=== PATIENT | male | born 1975 | race Caucasian/White ===

== ENCOUNTER 2022-08-04 09:48 | Outpatient (CLI) | payer OTHER, SELFPAY ==
[2022-08-04 16:49] LABS: Chloride* 99 mmol/L (96-114); Potassium* 5.1 mmol/L (3.6-5.1); Sodium* 139 mmol/L (135-149)
[2022-08-04 16:52] LABS: Blood Urea Nitrogen* 20 mg/dL (5-24); Carbon Dioxide* 31 mmol/L (20-32); Cholesterol* 237 mg/dL (90-199); Creatinine* 1.6 mg/dL (0.5-1.5); Estimated Glomerular Filt Rate 53 ml/min
[2022-08-04 16:53] LABS: Calcium* 9.9 mg/dL (8.4-10.6); Glucose* 92 mg/dL (60-115); HDL Cholesterol* 48 mg/dL (>=40); Triglycerides* 181 mg/dL (40-149)
[2022-08-04 16:57] LABS: LDL Cholesterol Calculated 153 mg/dL (<100)
== END 2022-08-04 09:49 | disposition home or self-care (01) ==
PROVIDERS: PCP Family Medicine; Visit Provider Family Medicine
DX: Z00.00 Encounter for general adult medical examination without abnormal findings (principal); E78.00 Pure hypercholesterolemia, unspecified; D64.9 Anemia, unspecified; F41.8 Other specified anxiety disorders; R79.89 Other specified abnormal findings of blood chemistry
CPT/HCPCS: 80048; 80061

== ENCOUNTER 2022-10-27 08:01 | Outpatient (CLI) | payer OTHER, SELFPAY | END 2022-10-27 08:02 | disposition home or self-care (01) | LOC: NFLDREF 11-03 12:37 | PROVIDERS: PCP Family Medicine; Referring Provider Family Medicine; Visit Provider Family Medicine | DX: E78.00 Pure hypercholesterolemia, unspecified (principal); R79.89 Other specified abnormal findings of blood chemistry | CPT/HCPCS: 80048; 80061 ==

== ENCOUNTER 2023-03-24 08:00 | Outpatient (CLI) | payer OTHER, SELFPAY | END 2023-03-24 08:01 | disposition home or self-care (01) | LOC: NFLDREF 03-25 08:16 | PROVIDERS: PCP Family Medicine; Referring Provider Family Medicine; Visit Provider Family Medicine | DX: E78.00 Pure hypercholesterolemia, unspecified (principal); R79.89 Other specified abnormal findings of blood chemistry | CPT/HCPCS: 80053; 80061 ==

== ENCOUNTER 2023-10-17 07:57 | Outpatient (CLI) | payer OTHER, SELFPAY | END 2023-10-17 07:58 | disposition home or self-care (01) | LOC: NFLDREF 10-18 06:00 | PROVIDERS: PCP Family Medicine; Referring Provider Family Medicine; Visit Provider Family Medicine | DX: E78.00 Pure hypercholesterolemia, unspecified (principal); Z13.1 Encounter for screening for diabetes mellitus | CPT/HCPCS: 80053; 80061 ==

== ENCOUNTER 2023-10-29 08:39 | Emergency (ER) | payer OTHER, SELFPAY ==
[2023-10-29] VITALS (27 sets, daily range): BP systolic 112–135; BP diastolic 79–94; PULSE 65–96; RESP 16; TEMP 36.2; O2SAT 92–99; BMI 23.0
--- NOTE | 2023-10-29 08:56 | CT_ITS ---
Final Report Patient: SHAVON HERNANDEZ Facility:?[facility] Patient ID:?[id number] Site Patient ID:?[id number]. Site :?[id number] Study:?CT Abdomen/Pelvis WITHOUT-10/29/2023 9:30:26 AM Ordering Physician:MARA Final Report: Indication: Left flank pain, rule out stone Technique: Volumetric multidetector CT images of the abdomen and pelvis were without the administration of intravenous contrast. Comparison: None available. Findings: The lung bases are clear. The liver is normal in attenuation without intrahepatic biliary ductal dilatation. The gallbladder is unremarkable without evidence of radiopaque calculus. There is no significant common biliary ductal dilatation or abrupt cut off. The spleen is normal in attenuation and size. The stomach and duodenum are grossly unremarkable. The pancreas is normal in attenuation without significant atrophy. The adrenal glands are unremarkable. There is demonstration of severe left-sided pelvocaliectasis with somewhat abrupt transition of caliber at the ureteropelvic junction without evidence of obstructive calculus. Finding may represent development of a ureteropelvic junction obstruction. Cystic changes of the right kidney are appreciated. Moderate to severe stool seen throughout the colon without evidence of significant pericolonic inflammation. The appendix is unremarkable. There is no significant mesenteric, retroperitoneal, or pelvic sidewall lymph nodes. The aorta is nonaneurysmal. There is no significant atherosclerotic disease appreciated. The solid pelvic viscera are grossly unremarkable. There is no free fluid or free air. The anterior abdominal wall is intact without significant hernias. The lumbar vertebral body heights are grossly maintained in satisfactory alignment without evidence of displaced fracture, lytic or blastic lesion. Impression: Severe left-sided pelvocaliectasis with somewhat abrupt transition of caliber at the level of the ureteropelvic junction without obstructive calculus. Findings could represent developing ureteropelvic junction obstruction and/or stricture. An underlying obstructive mass is not entirely excluded. Consider further evaluation with CT urogram for improved characterization. Moderate to severe stool seen throughout the colon. Otherwise, no acute intra-abdominal abnormalities. Please note that all CT scans at this facility use dose modulation, iterative reconstruction, and/or weight-based dosing when appropriate to reduce radiation dose to as low as reasonably achievable. Dictated by Zuhair Campos MD @ 10/29/2023 9:42:15 AM (Electronic Signature)
--- NOTE | 2023-10-29 08:58 | ED.GENADULT ---
HPI - General Adult General Chief complaint: Flank Pain Stated complaint: abdominal pain radiates to back Time Seen by Provider: 10/29/23 08:42 History of Present Illness HPI narrative: [age] year white male who has a history of elevated creatinine at 1.6, it is elevated over last couple years. He is scheduled to see Nephrology. The patient reports with onset at 3 in the morning of left flank pain radiating a little bit around to his groin starting in his back. Seems like it is more tender to touch in the anterior abdomen but he can not really reproduce that pain. He has had no history of diverticulitis, no history of kidney stones. No history of hematuria. Did he did think he had blood in his urine remotely. No rigors or chills. Patient presents to ED with his family. Related Data Home Medications Medication Instructions Recorded Confirmed famotidine 20 mg tablet 20 mg PO QDAY 10/27/23 10/27/23 Previous Rx's Medication Instructions Recorded rosuvastatin 10 mg tablet 10 mg PO DAILY #90 tabs 03/27/23 escitalopram oxalate 10 mg tablet 10 mg PO DAILY #90 tabs 08/18/23 Allergies Allergy/AdvReac Type Severity Reaction Status Date / Time No Known Allergies Allergy Unknown Verified 10/27/23 10:16 Review of Systems Status of ROS: Reports: 6 or more systems reviewed and unremarkable except as noted in History and below [facility] Medical History Chronic kidney disease ?N18.9 - Chronic kidney disease, unspecified (ICD-10) Hypercholesterolemia ?E78.00 - Pure hypercholesterolemia, unspecified (ICD-10) Surgical History History of vasectomy ?Z98.52 - Vasectomy status (ICD-10) Family History Other Colonic polyp Social History Smoking Status: Never smoker Do you use any of these nicotine containing products: None Second hand tobacco smoke exposure: No How often do you have a drink containing alcohol: 2-4 times a month How many standard drinks containing alcohol do you have on a typical day: 5 or 6 How often do you have six or more drinks on one occasion: Monthly AUDIT-C Alcohol total score: 6 Non-prescribed substance use: denies use Little interest or pleasure in doing things: not at all Feeling down, depressed, or hopeless: several days service: No Exam Narrative: Exam Narrative: Objective afebrile, in mild distress to moderate distress and discomfort HEENT unremarkable neck is supple line pulse regular Abdomen bowel sounds normoactive, mild tenderness to left lower abdomen but no rebound or peritonitis no palpable masses. Negative CVA tenderness Extremities normal neurologic nonfocal, good skin peripheral perfusion. Const: Vital Signs, click to edit/add: Vital Signs - 24 hr 10/29/23 08:43 10/29/23 09:21 10/29/23 09:29 Temperature 97.1 F L Pulse Rate Pulse Rate [Pulse Oximeter] 69 78 Respiratory Rate 16 16 Blood Pressure Blood Pressure [Ri ght Upper Arm] 135/93 H 129/94 H Pulse Oximetry 99 97 97 Oxygen Delivery Me thod Room Air Room Air Oxygen Flow Rate 10/29/23 09:35 10/29/23 09:40 10/29/23 10:00 Temperature Pulse Rate 65 69 78 Pulse Rate [Pulse Oximeter] Respiratory Rate Blood Pressure Blood Pressure [Ri ght Upper Arm] Pulse Oximetry 93 93 94 Oxygen Delivery Me thod Oxygen Flow Rate 10/29/23 10:20 10/29/23 10:24 10/29/23 10:29 Temperature Pulse Rate 74 75 86 Pulse Rate [Pulse Oximeter] Respiratory Rate Blood Pressure 125/92 H 121/89 Blood Pressure [Ri ght Upper Arm] Pulse Oximetry 98 99 95 Oxygen Delivery Me thod Oxygen Flow Rate 10/29/23 10:30 10/29/23 10:40 10/29/23 10:48 Temperature Pulse Rate 86 86 82 Pulse Rate [Pulse Oximeter] Respiratory Rate Blood Pressure 118/84 Blood Pressure [Ri ght Upper Arm] Pulse Oximetry 94 94 92 Oxygen Delivery Me thod Oxygen Flow Rate 10/29/23 10:49 10/29/23 11:00 10/29/23 11:23 Temperature Pulse Rate 82 82 82 Pulse Rate [Pulse Oximeter] Respiratory Rate Blood Pressure Blood Pressure [Ri ght Upper Arm] Pulse Oximetry 96 98 97 Oxygen Delivery Me thod Nasal Cannula Nasal Cannula Oxygen Flow Rate 1 1 10/29/23 11:31 10/29/23 11:40 10/29/23 12:00 Temperature Pulse Rate 83 87 83 Pulse Rate [Pulse Oximeter] Respiratory Rate Blood Pressure 116/84 Blood Pressure [Ri ght Upper Arm] Pulse Oximetry 93 92 94 Oxygen Delivery Me thod Oxygen Flow Rate 10/29/23 12:01 10/29/23 12:20 10/29/23 12:31 Temperature Pulse Rate 93 89 89 Pulse Rate [Pulse Oximeter] Respiratory Rate Blood Pressure 117/85 116/84 Blood Pressure [Ri ght Upper Arm] Pulse Oximetry 95 93 93 Oxygen Delivery Me thod Oxygen Flow Rate 10/29/23 12:40 Temperature Pulse Rate 83 Pulse Rate [Pulse Oximeter] Respiratory Rate Blood Pressure Blood Pressure [Ri ght Upper Arm] Pulse Oximetry 93 Oxygen Delivery Me thod Oxygen Flow Rate Course Vital Signs Vital signs: Initial Vital Signs Temperature 97.1 F L 10/29/23 08:43 Temperature Source Temporal Artery Scan 10/29/23 08:43 Pulse Rate 69 10/29/23 08:43 Pulse Rhythm Regular 10/29/23 08:43 Respiratory Rate 16 10/29/23 08:43 Blood Pressure 135/93 H 10/29/23 08:43 Blood Pressure Mean 107 H 10/29/23 08:43 Blood Pressure Position Supine 10/29/23 08:43 Pulse Oximetry 99 10/29/23 08:43 Oxygen Delivery Method Room Air 10/29/23 08:43 Vital Signs Temperature 97.1 F L 10/29/23 08:43 Pulse Rate 69 10/29/23 08:43 Respiratory Rate 16 10/29/23 08:43 Blood Pressure 135/93 H 10/29/23 08:43 Pulse Oximetry 99 10/29/23 08:43 Oxygen Delivery Method Room Air 10/29/23 08:43 Temperature 97.1 F L 10/29/23 08:43 Pulse Rate 83 10/29/23 12:40 Respiratory Rate 16 10/29/23 09:21 Blood Pressure 116/84 10/29/23 12:31 Pulse Oximetry 93 10/29/23 12:40 Oxygen Delivery Method Nasal Cannula 10/29/23 11:00 Oxygen Flow Rate 1 10/29/23 11:00 Medications Administered Medications: Discontinued Medications Generic Name Dose Route Start Last Admin Trade Name Freq PRN Reason Stop Dose Admin Hydromorphone HCl 1 mg 10/29/23 10:22 10/29/23 10:24 Hydromorphone 0.5 Mg/0.5 Ml Inj IVP 10/29/23 10:23 1 mg ONCE ONE Administration Sodium Chloride 1,000 mls @ 6,000 mls/hr 10/29/23 09:00 10/29/23 12:01 0.9 % Sodium Chloride 1000 Ml IV 10/29/23 09:09 Infused .Q10M ZACK Infusion Morphine Sulfate 4 mg 10/29/23 08:56 10/29/23 09:13 Morphine 4 Mg/Ml Inj IVP 10/29/23 08:57 4 mg ONCE ONE Administration Ondansetron HCl 4 mg 10/29/23 08:56 10/29/23 09:13 Ondansetron 2 Mg/Ml Inj IVP 10/29/23 08:57 4 mg ONCE ONE Administration Medical Decision Making MDM Narrative Medical decision making narrative: [age] year white male with abdominal pain left flank pain probable kidney stone, patient also has some mildly elevated creatinine. Will do an unenhanced CT, IV fluid, pain medication in the form of morphine, also he has felt nauseated will give some Zofran. Will check electrolytes labs urinalysis. Disposition pending CT scan in his clinical status. Addendum 10:21 a.m. the patient has for left UPJ obstruction, no stone is seen but this is likely explanation for his chronically elevated creatinine or progressively elevated creatinine. He is in a good amount of discomfort still given Dilaudid IV and he needs a urologic consultation and treatment. Will call for Urology consult and transfer. Transfer sheets completed patient is in stable condition for transfer. Addendum 11:13 a.m. the patient has been accepted by a Urology Dr. Ascencio at [facility]. Will discuss with the hospitalist as well. There is a delay but likely would get a stent tomorrow. Lab Data Labs: Lab Results 10/29/23 10/29/23 Range/Units 09:12 11:20 WBC 8.96 (4.50-11.00) K/uL RBC 4.97 (4.30-5.90) m/uL Hgb 14.7 (13.5-17.5) gm/dL Hct 42.1 (37.0-53.0) % MCV 85 (80-100) fL MCH 30 (26-34) pg MCHC 35 (32-36) gm/dL RDW Coeff of Cristian 11.8 (11.5-15.5) % Plt Count 187 (140-440) K/uL Neut % (Auto) 89.3 H (42.0-72.0) % Lymph % (Auto) 6.4 L (20-44) % [place] % (Auto) 4.0 (0.0-11.0) % Eos % (Auto) 0.1 (0.0-7.0) % Baso % (Auto) 0.1 (0.0-3.0) % Neut # (Auto) 8.00 H (1.7-7.0) K/uL Lymph # (Auto) 0.60 L (0.90-2.90) K/uL [place] # (Auto) 0.40 (0.00-0.90) K/UL Eos # (Auto) 0.01 (0.00-0.50) K/uL Baso # (Auto) 0.01 (0.00-0.30) K/uL Abs Immat Gran (auto) 0.01 (0.00-0.30) K/uL Imm/Tot Granulo (auto) 0.1 % Sodium 138 (135-149) mmol/L Potassium 4.1 (3.6-5.1) mmol/L Chloride 104 (96-114) mmol/L Carbon Dioxide 24 (20-32) mmol/L Anion Gap 10 (7-15) mEq/L BUN 24 (5-24) mg/dL Creatinine 1.3 (0.5-1.5) mg/dL Estimated Creat Clear 73.56 Estimated GFR 68 ml/min Glucose 110 (60-115) mg/dL Calcium 9.6 (8.4-10.6) mg/dL Total Bilirubin 0.9 (0.1-1.5) mg/dL Direct Bilirubin 0.2 (0.0-0.5) mg/dL AST 38 H (12-35) U/L ALT 42 (4-50) U/L Alkaline Phosphatase 64 (40-150) U/L C-Reactive Protein < 0.5 L (0.5-1.0) mg/dL Total Protein 7.8 (6.0-8.3) g/dL Albumin 4.8 (3.3-5.0) g/dL Amylase 105 H (18-89) U/L Urine Color Yellow (Yellow) Urine Appearance Clear (Clear) Urine pH 7.5 (5.0-8.5) Ur Specific [place] 1.020 (1.000-1.030) Urine Protein Negative (Negative) Urine Glucose (UA) Negative (Negative) Urine Ketones 2+ A (Negative) Urine Blood Negative (Negative) Urine Nitrite Negative (Negative) Urine Bilirubin Negative (Negative) Urine Urobilinogen 0.2 (0.2-1.0) Ur Leukocyte Esterase Negative (Negative) Urine RBC 0-2 (0-2) Urine WBC 0-2 (0-5) Ur Squamous Epith Cells None (None-Few) Urine Bacteria None (None) Discharge Plan Discharge Clinical Impression: Acute left flank pain, Obstruction of left ureteropelvic junction (UPJ) Patient Disposition: Xfer Jacqueline Shahid Prescriptions: No Action famotidine 20 mg tablet 20 mg PO QDAY rosuvastatin 10 mg tablet 10 mg PO DAILY Qty: 90 3RF escitalopram oxalate 10 mg tablet 10 mg PO DAILY Qty: 90 0RF Stand Alone Forms: MyHealth Info Instructions
[2023-10-29] MEDS: ONDANSETRON 2 MG/ML inj 4 MG IVP (09:13)
[2023-10-29] MEDS: MORPHINE 4 MG/ML INJ IVP (09:13)
[2023-10-29 09:20] LABS: Basophils Absolute Auto 0.01 K/uL (0.00-0.30); Basophils Percent Auto 0.1 % (0.0-3.0); Eosinophils Absolute Auto 0.01 K/uL (0.00-0.50); Eosinophils Percent Auto 0.1 % (0.0-7.0); Hematocrit 42.1 % (37.0-53.0); Hemoglobin* 14.7 gm/dL (13.5-17.5); Immature Granulocytes Abs Auto 0.01 K/uL (0.00-0.30); Immature Granulocytes Pct Auto 0.1 %; Lymphocytes Percent Auto 6.4 % (20-44); Mean Corpuscular HGB Conc 35 gm/dL (32-36); Mean Corpuscular Hemoglobin 30 pg (26-34); Mean Corpuscular Volume 85 fL (80-100); Neutrophils Percent Auto 89.3 % (42.0-72.0); Platelet Count* 187 K/uL (140-440); RDW Coefficient of Variation % 11.8 % (11.5-15.5); Red Blood Count 4.97 m/uL (4.30-5.90); White Blood Count* 8.96 K/uL (4.50-11.00)
[2023-10-29] MEDS: 0.9 % SODIUM CHLORIDE 1000 ml 1,000 ML 6000 ML IV (09:20)
[2023-10-29 09:24] LABS: Slide Review Reflex No
[2023-10-29 09:40] LABS: Albumin* 4.8 g/dL (3.3-5.0)
[2023-10-29 09:41] LABS: Chloride* 104 mmol/L (96-114); Potassium* 4.1 mmol/L (3.6-5.1); Sodium* 138 mmol/L (135-149)
[2023-10-29 09:43] LABS: Alkaline Phosphatase* 64 U/L (40-150); Aspartate Amino Transferase* 38 U/L (12-35); Bilirubin Direct* 0.2 mg/dL (0.0-0.5); Bilirubin Total* 0.9 mg/dL (0.1-1.5); Total Protein* 7.8 g/dL (6.0-8.3)
[2023-10-29 09:44] LABS: Alanine Aminotransferase* 42 U/L (4-50); Amylase* 105 U/L (18-89); Anion Gap 10 mEq/L (7-15); Carbon Dioxide* 24 mmol/L (20-32); Creatinine* 1.3 mg/dL (0.5-1.5); Est. Creatinine Clearance* 73.56; Estimated Glomerular Filt Rate 68 ml/min
[2023-10-29 09:45] LABS: Blood Urea Nitrogen* 24 mg/dL (5-24); Calcium* 9.6 mg/dL (8.4-10.6); Glucose* 110 mg/dL (60-115)
[2023-10-29 09:53] LABS: C Reactive Protein* < 0.5 mg/dL (0.5-1.0)
[2023-10-29] MEDS: HYDROmorphone 0.5 mg/0.5 ml inj 1 MG IVP ×2 (10:24→13:20)
[2023-10-29 12:08] LABS: Appearance Urine Clear (Clear); Bilirubin Urine Negative (Negative); Blood Urine Negative (Negative); Color Urine Yellow (Yellow); Glucose Urine Negative (Negative); Ketones Urine 2+ (Negative); Leukocyte Esterase Urine Negative (Negative); Nitrite Urine Negative (Negative); Protein Urine Negative (Negative); Urobilinogen Urine 0.2 (0.2-1.0); pH Urine 7.5 (5.0-8.5)
[2023-10-29 12:21] LABS: RBC Urine 0-2 (0-2); WBC Urine 0-2 (0-5)
== END 2023-10-29 14:05 | disposition home or self-care (01) ==
PROVIDERS: Emergency Provider Family Medicine; PCP Family Medicine
DX: N13.0 Hydronephrosis with ureteropelvic junction obstruction (principal)
CPT/HCPCS: 36415; 74176; 80048; 80076; 81001; 82150; 85025; 86140; 87086; 94761; 96374; 96375; 96376; 99284; 99285; J1170; J2270; J2405; J7030

== ENCOUNTER 2023-10-29 13:52 | Outpatient (CLI) | payer OTHER, SELFPAY | END 2023-10-29 13:53 | disposition home or self-care (01) | LOC: AMB 11-07 06:53 | PROVIDERS: PCP Family Medicine; Visit Provider Family Medicine | DX: N13.5 Crossing vessel and stricture of ureter without hydronephrosis (principal) | CPT/HCPCS: A0425; A0427 ==

== ENCOUNTER 2023-12-08 15:13 | Outpatient (CLI) | payer OTHER, SELFPAY | END 2023-12-08 15:14 | disposition home or self-care (01) | PROVIDERS: PCP Family Medicine; Visit Provider Family Medicine | DX: R79.89 Other specified abnormal findings of blood chemistry (principal); N18.9 Chronic kidney disease, unspecified; Z12.5 Encounter for screening for malignant neoplasm of prostate | CPT/HCPCS: 80048; 87086; G0103 ==

== ENCOUNTER 2024-02-20 10:52 | Outpatient (CLI) | payer OTHER, SELFPAY ==
--- OUTSIDE RECORDS SUMMARY | 2024-02-20 10:55 | XMS_ITS | Clinical Summary ---
Author Organization [employer] [facility] Address [place], [place] [address] Care Team Providers Care Agricultural Agent Name Role Phone Clinic, No Pcp Or Primary Care Provider Unavaila ble Allergies No known active allergies Medications Medication Sig Dispensed Refills Start Date End Date Status rosuvastatin (Crestor) 10 mg tablet Take 10 mg by mouth at bedtime. Active escitalopram oxalate (Lexapro) 10 mg tablet Take 10 mg by mouth once daily. Active famotidine (Pepcid) 20 mg tablet Take 20 mg by mouth at bedtime. Active oxyCODONE (ROXICODONE) 5 mg immediate release tabletIndications:UPJ (ureteropelvic junction) obstruction Take 1-2 Tablets (5-10 mg) by mouth every 4 hours if needed for Pain (For severe pain.). 12 Tablet 12/13/2023 Active docusate (COLACE) 100 mg capsuleIndications:UP J (ureteropelvic junction) obstruction Take 1 Capsule (100 mg) by mouth 2 times daily if needed for Constipation. 30 Capsule 12/13/2023 Active methocarbamoL (ROBAXIN) 500 mg tabletIndications:H/O left radical nephrectomy Take 1 Tablet (500 mg) by mouth every 6 hours if needed for Muscle Spasm by mouth 1st choice. 16 Tablet 12/14/2023 Active Active Problems Problem Noted Date Diagnosed Date Postoperative ileus 12/16/2023 CKD (chronic kidney disease) stage 2, GFR 60-89 ml/min 12/16/2023 Hyperglycemia 12/16/2023 H/O left nephrectomy 12/16/2023 Atrophic kidney 12/14/2023 UPJ obstruction, acquired 10/30/2023 UPJ (ureteropelvic junction) obstruction 024 Ureteropelvic junction (UPJ) obstruction 024 GERD without esophagitis 10/29/2023 Other hyperlipidemia 10/29/2023 Persistent depressive disorder 10/29/2023 Encounters Date Type Department Care Team Description 12/15/2023 10:42 PM CDT - 12/18/2023 12:00 PM CDT Hospital Encounter [place] [id number] [facility] [place] [address] Juan Paiz MD Fafara, Jafary, MD Vanderloo, Matthew Robert, MD Postoperative ileus (HC) (Primary Dx) Discharge Disposition: Home Self Care 12/15/2023 Travel 12/12/2023 11:21 AM CDT Anesthesia Event [facility] [address] [place] [address] Mekhi Benson MD Howard, Darwin Thomas, CRNA 12/12/2023 10:56 AM CDT - 12/12/2023 1:15 PM CDT Surgery [facility] [address] [place] [address] Ronny Sanchez MD HAND ASSISTED LAPAROSCOPIC LEFT NEPHRECTOMY 12/12/2023 9:25 AM CDT - 12/14/2023 1:55 PM CDT Hospital Encounter [facility] [address] [place] [address] Ronny Sanchez MD UPJ (ureteropelvic junction) obstruction (Primary Dx); H/O left radical nephrectomy Discharge Disposition: Home Self Care 12/11/2023 Travel 11/22/2023 5:44 PM CDT - 11/22/2023 11:59 PM CDT Hospital Encounter [facility] [address] [place] [address] Ronny Sanchez MD Hydronephrosis 11/22/2023 Travel from Last 3 Months Immunizations Name Administration Dates Next Due Hepatitis A (Adult) 11/13/2002 Influenza A (H1N1), Inactivated 08/13/2009 Influenza Virus, Unspecified 05/29/2009 Influenza, IIV4 08/12/2023,07/08/2021,05/12/2020 Influenza,CCIIV4 PRESERV FREE 07/05/2022 Influenza,LAIV3 Live Intranasal (Flumist) 2007 Tdap 06/17/2014 Social History Tobacco Use Types Packs/Day Years Used Date Smoking Tobacco: Never Smokeless Tobacco: Never Tobacco Cessation:Counseling Given: Not Answered Alcohol Use Standard Drinks/Week Comments Yes 0 (1 standard drink = 0.6 oz pur e alcohol) Social Connections Answer Date Recorded Frequency of Communication with Friends and Fami ly 0 10/29/2023 Financial Resource Strain Answer Date R ecorded Difficulty of Paying Living Expenses 3 10/29/2023 Difficulty of Paying Living Expenses Not on file 10/29/2023 Food Insecurity Answer Date Recorded Worried About Running Out of Food in the Last Ye ar 1 10/29/2023 Transportation Needs Answer Date Record ed Lack of Transportation (Medical) 1 10/29/2023 Housing Stability Answer Date Recorded Unable to Pay for Housing in the Last Year 1 12/12/2023 Sex and Gender Information Value Date Recorded Sex Assigned at Not on file Gender Identity Not on file Sexual Orientation Not on file Obstetrics History Last Filed Vital Signs Vital Sign Reading Time Taken Comments Blood Pressure 116/70 12/18/2023 8:14 AM CDT Pulse 78 12/18/2023 8:14 AM CDT Temperature 36.6 ??C (97.9 ??F) 12/18/2023 8:14 AM CD T Respiratory Rate 16 12/18/2023 8:14 AM CDT Oxygen Saturation 99% 12/18/2023 8:14 AM CDT Inhaled Oxygen Concentration - - Weight 72.6 kg (160 lb) 12/15/2023 10:41 PM CDT Height 180.3 cm (5' 11) 12/15/2023 10:41 PM CDT Body Mass Index 22.32 12/15/2023 10:41 PM CDT Plan of Treatment Health Maintenance Due Date Last Done Comments Depression screening for age 12+ 1987 HIV for age 15-65 1990 BMI (ht and wt on same day) for age 18+ 1993 Hepatitis C screening for age 18-79 1993 Colonoscopy through age 75 02/23/2020 Lipids for age 45-75 02/23/2020 Influenza for age 9-49 04/28/2024 12/16/202 3, 07/05/2022, 07/08/2021, Additional history exists Tetanus booster 06/17/2024 06/17/2014 Tdap Completed 06/17/2014 COVID-19 vaccine series Completed 08/23/20 23, 08/13/2022, 08/22/2021, Additional history exists Pneumococcal series for age 6-64 Aged Out No longer eligible based on patient's age to complete this topic Medical Devices Implanted Type Area Inspector Of Dredging Device Identifier Shelf Expiration Date Model / Serial / Lot Stent Uret [id number] Contour - [id number] Implanted:Qty: 1 on 10/30/2023 by Zurdo Ascencio MD at [facility] Left: Ureter [facility] 12/01/2023 [id number] Description:See implant shee t Procedures Procedure Name Priority Date/Time Associated Diagnosis Comments C-REACTIVE PROTEIN Early AM 12/17/2023 7: 27 AM CDT HEMOGLOBIN Early AM 12/17/2023 7:27 AM CDT CREATININE Early AM 12/17/2023 7:27 AM CDT XR ABDOMEN 1 VIEW PORTABLE STAT 12/16/2023 12:11 PM CDT WHITE BLOOD COUNT Early AM 12/16/2023 6:1 3 AM CDT GLUCOSE, RANDOM Early AM 12/16/2023 6:13 AM CDT CREATININE Early AM 12/16/2023 6:13 AM CDT MAGNESIUM Early AM 12/16/2023 6:13 AM CDT POTASSIUM Early AM 12/16/2023 6:13 AM CDT SODIUM Early AM 12/16/2023 6:13 AM CDT HEMOGLOBIN Early AM 12/16/2023 6:[address] ABDOMEN PELVIS W STAT 12/16/2023 1 2:06 AM CDT UA W/ SEDIMENT EXAM REFLEXED PER CRITERIA STAT 12/15/2023 11:47 PM CDT HEMOGLOBIN A1C SCREENING ISAAC 12/15/2023 11:30 PM CDT CBC WITH AUTO DIFFERENTIAL STAT 12/15/2023 11:30 PM CDT HEPATIC FUNCTION PANEL STAT 12/15/2023 11:30 PM CDT BASIC METABOLIC PANEL STAT 12/15/2023 11:30 PM CDT CBC WITH AUTO DIFFERENTIAL STAT 12/15/2023 11:30 PM CDT HEMOGLOBIN Today 12/14/2023 11:19 AM CDT CREATININE Today 12/14/2023 11:19 AM CDT BASIC METABOLIC PANEL Early AM 12/13/2023 7:20 AM CDT CBC W PLT NO DIFF Early AM 12/13/2023 7:2 0 AM CDT PATH TISSUE EXAM Today 12/12/2023 12:1 1 PM CDT ENDOTRACHEAL TUBE Routine 12/12/2023 11: 47 AM CDT ENDOTRACHEAL TUBE Routine 12/12/2023 11: 47 AM CDT LAPAROSCOPIC NEPHRECTOMY HAND ASSISTED Class E Urgent 12/12/2023 10:50 AM CDT LEFT URETEROPELVIC JUNCTION OBSTRUCTION TYPE & SCREEN Today 12/12/2023 9:56 AM CDT SCAN-CARDIAC STRIP 12/12/2023 12 :00 AM CDT SCAN CORRESP-LABORATORY RESULTS 12/11/2023 3:29 PM CDT XR ABDOMEN 1 VIEW Routine 11/22/2023 6:0 1 PM CDT Hydronephrosis from Last 3 Months Results * (ABNORMAL) HEMOGLOBIN (12/17/2023 7:27 AM CDT) Only the most recent of3 resultswithin the time period is included. Pathologist [facility] HEMOGLOBIN 12.9(L) 13.5 - 17.5 g/dL 12/17/2023 7:35 AM CDT [facility] MCV 89 80 - 100 fL 12/17/2023 7:35 AM CDT [facility] Blood BLOOD SPECIMEN / Unknown Venipuncture / Unknown 12/17/2023 7:27 AM CDT 12/17/2023 7:31 AM CDT Ind[place] [address] * (ABNORMAL) CREATININE (12/17/2023 7:27 AM CDT) Only the most recent of3 resultswithin the time period is included. Pathologist [facility] eGFR 64(L) >90 mL/min/1.7 3m2 12/17/2023 7:52 AM CDT [facility] Comment:As of 2021, eG FR is calculated by the CKD-EPI creatinine equation without race adjustment. ??eGFR can be influenced by muscle mass, exercise, and diet. ??The reported eGFR is an estimation only and is only applicable if the renal function is stable. CREATININE 1.36(H) 0.70 - 1.20 mg/dL 12/17/2023 7:52 AM CDT [facility] Blood BLOOD SPECIMEN / Unknown Venipuncture / Unknown 12/17/2023 7:27 AM CDT 12/17/2023 7:31 AM CDT Indio Crouch MD CHEMISTRY Performing Organization Address [facility] Co de Phone Number [address] [address] * (ABNORMAL) C-REACTIVE PROTEIN (12/17/2023 7:27 AM CDT) C-REACTIVE PROTEIN 2.3(H) <0.5 mg/dL 12/17/2023 7:52 AM CDT [facility] Blood BLOOD SPECIMEN / Unknown Venipuncture / Unknown 12/17/2023 7:27 AM CDT 12/17/2023 7:31 AM CDT Indio Crouch MD CHEMISTRY Performing Organization Address [facility] Co de Phone Number [address] [address] * XR ABDOMEN 1 VIEW PORTABLE (12/16/2023 12:11 PM CDT) Anatomical Region Laterality Modality Abdomen Digital Radiogra phy 12/16/2023 1:04 PM CDT Narrative 12/16/2023 1:04 PM CDT For Patients: ??As a result of the Cures Act, medical imaging exams and procedure reports are released immediately into your electronic medical record. ??You may view this report before your referring provider. ??If you have questions, please contact your health care provider. INDICATION: Tube placement TECHNIQUE: Single view abdomen. FINDINGS: NG tube in the proximal stomach. Prominent gas-filled loops of colon. Dictated by Lilly Moura MD @ 12/16/2023 1:04:20 PM (Electronically Signed) Procedure Note Lilly Moura MD - 12/16/2023 For Patients: As a result of the Cures Act, medical imagingexams and procedure reports are released immediately into your electronicmedical record. You may view this report before your referring provider.If you have questions, please contact your health care provider. INDICATION: Tube placement TECHNIQUE: Single view abdomen. FINDINGS: NG tube in the proximal stomach. Prominent gas-filled loops of colon. Dictated by Lilly Moura MD @ 12/16/2023 1:04:20 PM (Electronically Signed) Juan Paiz MD [facility] * GLUCOSE, RANDOM (12/16/2023 6:13 AM CDT) GLUCOSE,RANDOM 106 70 - 139 mg/dL 12/16/2023 6:54 AM CDT [facility] Blood BLOOD SPECIMEN / Unknown Venipuncture / Unknown 12/16/2023 6:13 AM CDT 12/16/2023 6:29 AM CDT Mathieu Huggins MD CHEMISTRY Performing Organization Address [facility] Co de Phone Number [address] [phone] * WHITE BLOOD COUNT (12/16/2023 6:13 AM CDT) WHITE BLOOD COUNT 4.8 4.5 - 11.0 thou/cu mm 12/16/2023 6:35 AM CDT [facility] NRBC 0.0 % 12/16/2023 6:35 AM CDT [facility] ABS NRBC 0.0 thou /cu mm 12/16/2023 6:35 AM CDT [facility] Blood BLOOD SPECIMEN / Unknown Venipuncture / Unknown 12/16/2023 6:13 AM CDT 12/16/2023 6:29 AM CDT Mathieu Huggins MD HEMATOLOGY Performing Organization Address [facility]/ZIP Co de Phone Number [address] [address] * SODIUM (12/16/2023 6:13 AM CDT) SODIUM 140 136 - 145 mmol/L 12/16/2023 6:54 AM CDT [facility] Blood BLOOD SPECIMEN / Unknown Venipuncture / Unknown 12/16/2023 6:13 AM CDT 12/16/2023 6:29 AM CDT Mathieu Huggins MD CHEMISTRY Performing Organization Address [facility] Co de Phone Number [address] [phone] * POTASSIUM (12/16/2023 6:13 AM CDT) POTASSIUM 4.0 3.5 - 5.1 mmol/L 12/16/2023 6:54 AM CDT [facility] Blood BLOOD SPECIMEN / Unknown Venipuncture / Unknown 12/16/2023 6:13 AM CDT 12/16/2023 6:29 AM CDT Mathieu Huggins MD CHEMISTRY Performing Organization Address [facility] Co de Phone Number [address] [phone] * MAGNESIUM (12/16/2023 6:13 AM CDT) MAGNESIUM 2.2 1.6 - 2.6 mg/dL 12/16/2023 6:59 AM CDT [facility] Blood BLOOD SPECIMEN / Unknown Venipuncture / Unknown 12/16/2023 6:13 AM CDT 12/16/2023 6:29 AM CDT Mathieu Huggins MD CHEMISTRY Performing Organization Address [facility] Co de Phone Number [address] [phone] * CT ABDOMEN PELVIS W (12/16/2023 12:06 AM CDT) Anatomical Region Laterality Modality Abdomen, Pelvis, AORTA, LIVER, SPLEEN Computed Tomography 12/16/2023 12:3 1 AM CDT Impressions 12/16/2023 12:31 AM CDT 1. Interval postsurgical changes of left nephrectomy with moderate volume pneumoperitoneum and abdominal wall subcutaneous emphysema. Recommend correlation with date of surgery to determine if this is an appropriate amount of air within the abdomen and pelvis. 2. Air and fluid distention of the colon from the cecum to the rectum, most compatible with an ileus. 3. No evidence for bowel obstruction. Please note that all CT scans at this facility use dose modulation, iterative reconstruction, and/or weight-based dosing when appropriate to reduce radiation dose to as low as reasonably achievable. Dictated by Russell Muir MD @ 12/16/2023 12:31:21 AM (Electronically Signed) Narrative 12/16/2023 12:31 AM CDT For Patients: ??As a result of the Cures Act, medical imaging exams and procedure reports are released immediately into your electronic medical record. ??You may view this report before your referring provider. ??If you have questions, please contact your health care provider. INDICATION: Postoperative pain, ileus. TECHNIQUE: CT abdomen and pelvis acquired with 80 cc of Omnipaque 350 IV contrast. COMPARISON: CT abdomen and pelvis 11/03/2023. FINDINGS: Lower chest: Mild bilateral lower lobe atelectasis and/or scarring in the lower lobes. Liver: Unremarkable. Normal in size and attenuation. No suspicious masses. Gallbladder and bile ducts: Unremarkable. No stones or inflammation. No biliary dilatation. Pancreas: Unremarkable. No mass or inflammation. Spleen: Unremarkable. Normal in size. No masses. Adrenal glands: Unremarkable. No nodules. Kidneys, Ureters, and Bladder: Recent postsurgical changes of left nephrectomy with stranding in the left renal fossa. Prominent simple cyst within the right kidney. No hydronephrosis or suspicious mass. Unremarkable right ureter. Distended urinary bladder. GI tract: Prominent air and fluid distention of the colon from the cecum to the rectum. No obstructing lesion identified. Multiple fluid filled, but otherwise nondilated loops of small bowel throughout the abdomen. No pneumatosis. Vasculature: Abdominal aorta is normal in caliber. Mesenteric arteries are patent. Lymph nodes: No lymphadenopathy. Peritoneum/Abdominal Wall: Moderate volume pneumoperitoneum with extension into the left inguinal canal. Subcutaneous emphysema within the anterior abdominal wall and rectus abdominus musculature. Pelvis: Prostatomegaly. Bones: Unremarkable for age. Procedure Note Russell Muir MD - 12/16/2023 For Patients: As a result of the Cures Act, medical imagingexams and procedure reports are released immediately into your electronicmedical record. You may view this report before your referring provider.If you have questions, please contact your health care provider. INDICATION: Postoperative pain, ileus. TECHNIQUE: CT abdomen and pelvis acquired with 80 cc of Omnipaque 350 IV contrast. COMPARISON: CT abdomen and pelvis 11/03/2023. FINDINGS: Lower chest: Mild bilateral lower lobe atelectasis and/or scarring in thelower lobes. Liver: Unremarkable. Normal in size and attenuation. No suspicious masses. Gallbladder and bile ducts: Unremarkable. No stones or inflammation. Nobiliary dilatation. Pancreas: Unremarkable. No mass or inflammation. Spleen: Unremarkable. Normal in size. No masses. Adrenal glands: Unremarkable. No nodules. Kidneys, Ureters, and Bladder: Recent postsurgical changes of leftnephrectomy with stranding in the left renal fossa. Prominent simple cystwithin the right kidney. No hydronephrosis or suspicious mass.Unremarkable right ureter. Distended urinary bladder. GI tract: Prominent air and fluid distention of the colon from the cecumto the rectum. No obstructing lesion identified. Multiple fluid filled,but otherwise nondilated loops of small bowel throughout the abdomen. Nopneumatosis. Vasculature: Abdominal aorta is normal in caliber. Mesenteric arteries arepatent. Lymph nodes: No lymphadenopathy. Peritoneum/Abdominal Wall: Moderate volume pneumoperitoneum with extensioninto the left inguinal canal. Subcutaneous emphysema within the anteriorabdominal wall and rectus abdominus musculature. Pelvis: Prostatomegaly. Bones: Unremarkable for age. IMPRESSION: 1. Interval postsurgical changes of left nephrectomy with moderate volumepneumoperitoneum and abdominal wall subcutaneous emphysema. Recommendcorrelation with date of surgery to determine if this is an appropriateamount of air within the abdomen and pelvis. 2. Air and fluid distention of the colon from the cecum to the rectum,most compatible with an ileus. 3. No evidence for bowel obstruction. Please note that all CT scans at this facility use dose modulation,iterative reconstruction, and/or weight-based dosing when appropriate toreduce radiation dose to as low as reasonably achievable. Dictated by Russell Muir MD @ 12/16/2023 12:31:21 AM (Electronically Signed) Juan Paiz MD CT * UA W/ SEDIMENT EXAM REFLEXED PER CRITERIA (12/15/2023 11:47 PM CDT) COLOR Yellow Yellow Color 12/15/2023 11:55 PM CDT [facility] CLARITY Clear Clear Clarity 12/15/2023 11:55 PM CDT [facility] SPECIFIC GRAVITY,URINE 1.015 1.010, 1.015, 1.020, 1.025 12/15/2023 11:55 PM CDT [facility] PH,URINE 7.5 6.0, 7.0, 8.0, 5.5, 6.5, 7.5, 8.5 12/15/2023 11:55 PM CDT [facility] UROBILINOGEN,Q UALITATIVE Normal Normal EU/dl 12/15/2023 11:55 PM CDT [facility] PROTEIN, URINE Negative Negative mg/dL 12/15/2023 11:55 PM CDT [facility] GLUCOSE, URINE Negative Negative mg/dL 12/15/2023 11:55 PM CDT [facility] KETONES,URINE Negative Negative mg/dL 12/15/2023 11:55 PM CDT [facility] BILIRUBIN,URIN E Negative Negative 12/15/2023 11:55 PM CDT [facility] OCCULT BLOOD,URINE Negative Negative 12/15/2023 11:55 PM CDT [facility] NITRITE Negative Negative 12/15/2023 11:55 PM CDT [facility] LEUKOCYTE ESTERASE Negative Negative 12/15/2023 11:55 PM CDT [facility] Urine URINE SPECIMEN / Unknown Non-Blood / Unknown 12/15/2023 11:47 PM CDT 12/15/2023 11:52 PM CDT Juan Paiz MD URINE [facility] [address] [place] [address] * (ABNORMAL) CBC WITH AUTO DIFFERENTIAL (12/15/2023 11:30 PM CDT) WHITE BLOOD COUNT 7.6 4.5 - 11.0 thou/cu mm 12/15/2023 11:44 PM CDT [facility] RED BLOOD COUNT 4.41 4.30 - 5.90 mil/cu mm 12/15/2023 11:44 PM CDT [facility] HEMOGLOBIN 13.2(L) 13.5 - 17.5 g/dL 12/15/2023 11:44 PM CDT [facility] HEMATOCRIT 38.5 37.0 - 53.0 % 12/15/2023 11:44 PM CDT [facility] MCV 87 80 - 100 fL 12/15/2023 11:44 PM CDT [facility] MCH 29.9 26.0 - 34.0 pg 12/15/2023 11:44 PM CDT [facility] MCHC 34.3 32.0 - 36.0 g/dL 12/15/2023 11:44 PM CDT [facility] RDW 11.9 11.5 - 15.5 % 12/15/2023 11:44 PM CDT [facility] PLATELET COUNT 177 140 - 440 thou/cu mm 12/15/2023 11:44 PM CDT [facility] MPV 9.8 6.5 - 11.0 fL 12/15/2023 11:44 PM CDT [facility] NRBC 0.0 % 12/15/2023 11:44 PM CDT [facility] ABS NRBC 0.0 thou /cu mm 12/15/2023 11:44 PM CDT [facility] % NEUT 80.5 % 12/15/2023 11:44 PM CDT [facility] % LYMPH 8.5 % 12/15/2023 11:44 PM CDT [facility] % MONO 8.5 % 12/15/2023 11:44 PM CDT [facility] % EOS 1.9 % 12/15/2023 11:44 PM CDT [facility] % BASO 0.3 % 12/15/2023 11:44 PM CDT [facility] % IMMATURE GRAN (METAS,MYELOS,LA OS) 0.3 % 12/15/2023 11:44 PM CDT [facility] ABSOLUTE NEUTROPHILS 6.1 1.7 - 7.0 thou/cu mm 12/15/2023 11:44 PM CDT [facility] ABSOLUTE LYMPHOCYTES 0.6(L) 0.9 - 2.9 thou/cu mm 12/15/2023 11:44 PM CDT [facility] ABSOLUTE MONOCYTES 0.6 <0.9 thou/cu mm 12/15/2023 11:44 PM CDT [facility] ABSOLUTE EOSINOPHILS 0.1 <0.5 thou/cu mm 12/15/2023 11:44 PM CDT [facility] ABSOLUTE BASOPHILS 0.0 <0.3 thou/cu mm 12/15/2023 11:44 PM CDT [facility] ABSOLUTE IMMATURE GRANULOCYTES(MET ,MYELOS,PROS) 0.0 <0.3 thou/cu mm 12/15/2023 11:44 PM CDT [facility] Blood BLOOD SPECIMEN / Unknown Non-Lab Venipuncture / Unknown 12/15/2023 11:30 PM CDT 12/15/2023 11:40 PM CDT Juan Paiz MD HEMATOLOGY [facility] [address] [place] [address] * HEMOGLOBIN A1C SCREENING (12/15/2023 11:30 PM CDT) HEMOGLOBIN A1C SCREENING 5.3 <=6.4 % 12/18/2023 8:15 AM CDT [facility] Blood BLOOD SPECIMEN / Unknown Non-Lab Venipuncture / Unknown 12/15/2023 11:30 PM CDT 12/15/2023 11:40 PM CDT Narrative [facility] - 12/18/2023 8:15 AM CDT ? (<5.7%) ?Normal ? (5.7% to 6.4%) ? Indicates prediabetes ? (>=6.5%) ? Confirms diabetes Falsely low levels may be seen with: Recent Transfusion, Recent Significant Blood Loss, Hemolytic Diseases, or Falsely elevated levels may be seen with: Untreated Anemias, Splenectomy Mathieu Huggins MD CHEMISTRY [place] [id number] [place] [address] * HEPATIC FUNCTION PANEL (12/15/2023 11:30 PM CDT) ALBUMIN 4.4 4.0 - 4.9 g/dL 12/16/2023 12:10 AM CDT [facility] PROTEIN,TOTAL 7.1 6.0 - 8.0 g/dL 12/16/2023 12:10 AM CDT [facility] BILIRUBIN,TOTAL 0.8 0.0 - 1.2 mg/dL 12/16/2023 12:10 AM CDT [facility] BILIRUBIN,DIRECT 0.2 0.0 - 0.3 mg/dL 12/16/2023 12:10 AM CDT [facility] BILIRUBIN,INDIRE CT 0.6 0.2 - 0.8 mg/dL 12/16/2023 12:10 AM CDT [facility] ALK PHOSPHATASE 56 40 - 129 IU/L 12/16/2023 12:10 AM CDT [facility] ALT (SGPT) 34 10 - 50 IU/L 12/16/2023 12:10 AM CDT [facility] AST (SGOT) 46 10 - 50 IU/L 12/16/2023 12:10 AM CDT [facility] Blood BLOOD SPECIMEN / Unknown Non-Lab Venipuncture / Unknown 12/15/2023 11:30 PM CDT 12/15/2023 11:40 PM CDT Juan Paiz MD CHEMISTRY [address] [address] * (ABNORMAL) BASIC METABOLIC PANEL (12/15/2023 11:30 PM CDT) Only the most recent of2 resultswithin the time period is included. SODIUM 140 136 - 145 mmol/L 12/16/2023 12:10 AM CDT [facility] POTASSIUM 3.7 3.5 - 5.1 mmol/L 12/16/2023 12:10 AM CDT [facility] CHLORIDE 98 98 - 107 mmol/L 12/16/2023 12:10 AM CDT [facility] CO2,TOTAL 31(H) 22 - 29 mmol/L 12/16/2023 12:10 AM CDT [facility] ANION GAP 11 5 - 18 12/16/2023 12:10 AM CDT [facility] GLUCOSE 146(H) 70 - 99 mg/dL 12/16/2023 12:10 AM CDT [facility] CALCIUM 9.8 8.6 - 10.0 mg/dL 12/16/2023 12:10 AM CDT [facility] BUN 14 6 - 20 mg/dL 12/16/2023 12:10 AM CDT [facility] CREATININE 1.39(H) 0.70 - 1.20 mg/dL 12/16/2023 12:10 AM CDT [facility] BUN/CREAT RATIO 10 10 - 20 12:10 AM CDT [facility] eGFR 63(L) >90 mL/min/1.7 3m2 12/16/2023 12:10 AM CDT [facility] Comment:As of 2021, eG FR is calculated by the CKD-EPI creatinine equation without race adjustment. ??eGFR can be influenced by muscle mass, exercise, and diet. ??The reported eGFR is an estimation only and is only applicable if the renal function is stable. Blood BLOOD SPECIMEN / Unknown Non-Lab Venipuncture / Unknown 12/15/2023 11:30 PM CDT 12/15/2023 11:40 PM CDT Juan Paiz MD CHEMISTRY [facility] [address] [place] [address] * (ABNORMAL) CBC with Platelets No Differential (12/13/2023 7:20 AM CDT) WHITE BLOOD COUNT 8.0 4.5 - 11.0 thou/cu mm 12/13/2023 7:38 AM CDT [facility] RED BLOOD COUNT 4.22(L) 4.30 - 5.90 mil/cu mm 12/13/2023 7:38 AM CDT [facility] HEMOGLOBIN 12.5(L) 13.5 - 17.5 g/dL 12/13/2023 7:38 AM CDT [facility] HEMATOCRIT 37.7 37.0 - 53.0 % 12/13/2023 7:38 AM CDT [facility] MCV 89 80 - 100 fL 12/13/2023 7:38 AM CDT [facility] MCH 29.6 26.0 - 34.0 pg 12/13/2023 7:38 AM CDT [facility] MCHC 33.2 32.0 - 36.0 g/dL 12/13/2023 7:38 AM CDT [facility] RDW 12.2 11.5 - 15.5 % 12/13/2023 7:38 AM CDT [facility] [facility] PLATELET COUNT 161 140 - 440 thou/cu mm 12/13/2023 7:38 AM T [facility] MPV 10.1 6.5 - 11.0 fL 12/13/2023 7:38 AM CDT [facility] NRBC 0.0 % 12/13/2023 7:38 AM T [facility] ABS NRBC 0.0 thou /cu mm 12/13/2023 7:38 AM T [facility] Blood BLOOD SPECIMEN / Unknown Venipuncture / Unknown 12/13/2023 7:20 AM CDT 12/13/2023 7:29 AM CDT Shea JANE HEMATOLOGY [facility] [address] [place] [address], [place] * PATH TISSUE EXAM (12/12/2023 12:11 PM CDT) Case Report Pathology Report ?Case: [id number] ? Authorizing Provider: ??Ronny Sanchez MD ?? Collected: ? 12/12/2023 1211 ? Ordering Location: ? [facility] ?Received: ?12/12/2023 1234 ? Hospital ? Pathologist: ? Isrrael Izaguirre MD ? Specimen: ?Left Kidney ? 12/14/2023 12:25 PM CDT [facility] LABORATORY-C ENTRAL LABORATORY Final Diagnosis A) KIDNEY, LEFT, HAND-ASSISTED LAPAROSCOPIC NEPHRECTOMY: 1. Ureteropelvic junction stricture with dilatation of renal pelvis 2. Renal parenchyma demonstrates changes of obstructive uropathy including sclerosis, atrophy and chronic inflammation 3. Ureter with polypoid reactive changes and stent in place 4. Negative for malignancy 12/14/2023 12:25 PM CDT [email or web address]-C ENTRAL LABORATORY Clinical Information UPJ obstruction and prior stent placement 12/14/2023 12:25 PM CDT [facility] [employer] LABORATORY-C ENTRAL LABORATORY Gross Description Received fresh and labeled with the patient's name and left kidney is a left radical nephrectomy consisting of the kidney (12.0 x 6.8 x 4.5 cm and 140.2 g; 9.7 x 4.4 x 3.2 cm kidney without adipose) with adherent yellow lobulated perinephric adipose tissue (up to 1.3 cm in thickness). There is a 12 cm discontinuous staple line at the hilum. The kidney is focally disrupted (presumed surgical; inked orange) at the superior pole near the hilum, but is easily reapproximated. A blue rubber tubular stent (9.0 cm long and 0.2 cm in diameter) is identified within the distal half of the ureter, but does not appear to reach the renal pelvis. The renal vasculature is cut flush with the hilum of the kidney, and appears patent. The renal capsule is haji-pink smooth and unremarkable. ??The adherent adipose tissue is partially disrupted, and Gerota's fascia cannot be definitively appreciated. The ureter (5.6 cm long and 0.5 cm in diameter) is characterized by haji glistening striated mucosa with no distinct solid mass lesions. The proximal ureter can be probed (with some difficulty); the lumen appears almost entirely constricted by bosselated edematous ureteropelvic mucosa. ??The ureteral pelvic wall ranges from 0.1-0.2 cm in thickness, with slight thickening at the constricted area. This constricted area measures 3.9 cm from the ureteral margin, 0.4 cm from the nearest vascular margin, and 1.0 cm from the nearest hilar soft tissue margin. The renal pelvis is diffusely dilated; however, the pelvic mucosa is unremarkable with a smooth haji glistening appearance. There is minimal renal sinus adipose tissue. The renal parenchyma is pink-haji homogenous and unremarkable with a distinct corticomedullary junction. The renal cortex appears slightly thinned, averaging 0.4-0.5 cm in thickness. ??No distinct cysts or mass lesions are identified. The renal vasculature is unremarkable and free of mass lesions or other abnormalities. The adrenal gland is not grossly present. No lymph nodes are identified in the hilar adipose tissue. The specimen is digitally photographed and the images are uploaded. Customer Services Supervisor sections are submitted as follows: 1. Hilar staple line margin, en face 2. Vascular/ureteral margins, en face 3-5. ??Entire ureteropelvic junction at stricture with edematous mucosa 6. Dilated pelvis with sinus adipose tissue, unremarkable renal parenchyma, and perinephric adipose tissue (from lower pole marrow ureteropelvic stricture) 7. ??Surgical disruption (inked orange) with unremarkable renal parenchyma (from upper pole) Specimen is placed in formalin at 1305 on 12/12/2023. ADW 12/13/2023 12/14/2023 12:25 PM CDT [facility] LABORATORY- ENTRAL LABORATORY Microscopic Description The final diagnosis is based on microscopic examination of appropriate sections of all specimens. 12/14/2023 12:25 PM CDT [facility] LABORATORY- ENTRAL LABORATORY Additional Information Interpreted at [facility], Central Laboratory - [address] [address] 12/14/2023 12:25 PM CDT [facility]- ENTRMO LABORATORY Tissue (Left Kidney) 12/12/2023 12:11 PM CDT 12/12/2023 12:34 PM CDT Ronny Sanchez MD [facility] [address] [place] [address], * HCHG TUBE PR1, HCHG STYLET PR1 (12/12/2023 11:47 AM CDT) Narrative Carlton Padilla CRNA - 12/12/2023 11:47 AM CDT Carlton Padilla CRNA ? 12/12/2023 11:47 AM Procedure: ETT Patient location during procedure: OR ETT Properties Mask Ventilation: easy Final Technique: direct laryngoscopy Type: straight Location: oral Cuffed: yes Tube Size: 7.5 mm Stylet: yes Laryngoscope Blade: Marino Blade Size: 2 Cormack-Lehane Grade View: 1 Insertion Attempts: 1 Placement Verification: auscultation, end tidal CO2 and symmetrical chest wall movement Assessment: pharynx clear, atraumatic and dentition unchanged Secured at: 22 Bite Block: soft Difficulty: 0 (not difficult) Mekhi Benson MD ANESTHESIA PX NOTE O RDERABLES * TYPE & SCREEN (12/12/2023 9:56 AM CDT) Pathologist [facility] ABORH A Rh Positive 12/12/2023 11:07 AM CDT [facility] LAB-CENTRAL LAB BLOOD BANK ANTIBODY SCREEN Negative Negative 12/12/2023 11:07 AM CDT [facility] SPECIMEN EXPIRATION DATE/TIME 12/15/23 23:59 12/12/2023 11:07 AM CDT [facility]-CENTRAL LAB BLOOD BANK Blood BLOOD SPECIMEN / Unknown Venipuncture / Unknown 12/12/2023 9:56 AM CDT 12/12/2023 10:20 AM CDT Jose M JANE BLOOD BANK [facility]-CENTRAL LAB BLOOD BANK [address] [place] [address], * SCAN-CARDIAC STRIP (12/12/2023 12:00 AM CDT) Narrative 12/12/2023 12:00 AM CDT Ordered by an unspecified provider. Other Clinical Staff OTHER * SCAN CORRESP-LABORATORY RESULTS (12/11/2023 3:29 PM CDT) Narrative 12/11/2023 3:29 PM CDT Ordered by an unspecified provider. Other Clinical Staff OTHER * XR ABDOMEN 1 VIEW (11/22/2023 6:01 PM CDT) Anatomical Region Laterality Modality Abdomen Digital Radiogra phy 11/22/2023 7:07 PM CDT Narrative 11/22/2023 7:07 PM CDT For Patients: ??As a result of the Cures Act, medical imaging exams and procedure reports are released immediately into your electronic medical record. ??You may view this report before your referring provider. ??If you have questions, please contact your health care provider. TECHNIQUE: KUB. Comparison CT 11/03/2023 FINDINGS: Left ureteral stent that appears in place. No radiopaque calculi seen along the expected course of the kidneys, ureters or urinary bladder. Small round right pelvic phlebolith. Dictated by Lilly Moura MD @ 11/22/2023 7:07:54 PM (Electronically Signed) Procedure Note Lilly Moura MD - 11/22/2023 For Patients: As a result of the Cures Act, medical imagingexams and procedure reports are released immediately into your electronicmedical record. You may view this report before your referring provider.If you have questions, please contact your health care provider. TECHNIQUE: KUB. Comparison CT 11/03/2023 FINDINGS: Left ureteral stent that appears in place. No radiopaque calculi seenalong the expected course of the kidneys, ureters or urinary bladder.Small round right pelvic phlebolith. Dictated by Lilly Moura MD @ 11/22/2023 7:07:54 PM (Electronically Signed) Ronny Sanchez MD GENERAL IMAGING from Last 3 Months Advance Directives * Full Code (Latest Code Status on File) Date Activated Date Inactivated Comments 12/16/2023 4:43 AM 12/18/2023 2:05 PM Question Answer Comments Code Status Discussion: Reviewed Preferences * Full Code Date Activated Date Inactivated Comments 12/12/2023 9:36 AM 12/14/2023 4:05 PM Question Answer Comments Code Status Discussion: Unable to Assess Preferences, Provider to review later * Full Code Date Activated Date Inactivated Comments 10/29/2023 5:24 PM 10/30/2023 5:57 PM Question Answer Comments Code Status Discussion: Reviewed Preferences Care Teams Agricultural Agent Relationship Specialty Start Date End Date Clinic, No Pcp Or . PCP - General 11/02/23
== END 2024-02-20 10:53 | disposition home or self-care (01) ==
PROVIDERS: PCP Family Medicine; Visit Provider Internal Medicine Nephrology
DX: Z00.00 Encounter for general adult medical examination without abnormal findings (principal); N18.9 Chronic kidney disease, unspecified; E78.00 Pure hypercholesterolemia, unspecified; D64.9 Anemia, unspecified; R79.89 Other specified abnormal findings of blood chemistry
CPT/HCPCS: 80069; 82043; 82570; 82610; 84450; 84460

== ENCOUNTER 2024-03-21 08:09 | Outpatient (CLI) | payer OTHER, SELFPAY ==
--- OUTSIDE RECORDS SUMMARY | 2024-03-22 10:24 | XMS_ITS | Continuity of Care Document ---
Author Organization [facility], [facility] Address [address] [place] [address] Care Team Providers Care Tire Recapping Machine Operator Name Role Phone KATHRYN MILLER Primary Care Provider [phone] Assessment No assessment recorded. Plan of Treatment Reminders Order Date Submit Date Provider Last Modified By Organization Details Last Modified Time Details Appointments None record ed. Lab None record ed. Referral None record ed. Procedures None record ed. Surgeries None record ed. Imaging None record ed. Medication Orders None record ed. Patient TargetsNo targets recorded. Patient InstructionsNo instructions recorded. Reason for Referral None Reported. 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 11/07/2023 14:39:14 Obstruction of pelviureteric junction Active 02/20/20 24 Tiffany English PA-C [address] [place] [address],[address], [place], [address] , [facility] 02/20/2024 15:03:16 Problem Notes None recorded. Procedures Surgical History Date Name Laterality Status Provider Name and Address Organization Details Recorded Time 12/12/19 24 NEPHRECTOMY, HAND ASSISTED LAPAROSCOPIC (SURG) completed Yane lu [facility] 12/14/2023 11:06:43 08/28/19 22 Colonoscopy completed Ronny Sanchez MD [address] [place] [address],[address], [place], [address], [facility] 01/10/2024 12:32:45 Sinus Surgery completed Ronny Sanchez MD [address] [place] [address],[address], [place], [address], [facility] 11/22/2023 17:20:09 Imaging Results None recorded. Procedure Notes None recorded. Medical Equipment None Reported. Allergies No known drug allergies Medications Name Sig Start Date Stop Date Status Note LastModified by Organization Details LastModified Time methocarbam ol 500 mg tablet 01/09 completed Not Available Not Available Not Available valacyclovi r 1 gram tablet TAKE 2 TABLETS BY MOUTH TWICE DAILY 02/20 completed Not Available Not Available Not Available phenazopyri dine 200 mg tablet TAKE 1 TABLET BY MOUTH THREE TIMES DAILY NEEDED FOR PAIN FOR UP TO 5 DAYS. 11/21 completed Not Available Not Available Not Available oxycodone-a cetaminophe n 5 mg-325 mg tablet TAKE 1 TABLET BY MOUTH EVERY 6 HOURS IF NEEDED FOR PAIN. NO MORE THAN 4,000MG OF ACETAMINO PHEN DAILY. 11/21 completed Not Available Not Available Not Available tamsulosin 0.4 mg capsule TAKE 1 CAPSULE BY MOUTH ONCE DAILY AFTER A MEAL. 01/09 completed Not Available Not Available Not Available cephalexin 500 mg capsule TAKE 1 CAPSULE BY MOUTH THREE TIMES DAILY FOR 5 DAYS. 11/21 completed Not Available Not Available Not Available oxycodone 5 mg tablet 01/09 completed Not Available Not Available Not Available escitalopra m 10 mg tablet TAKE 1 TABLET BY MOUTH DAILY active Not Available Not Available No t Available rosuvastati n 10 mg tablet TAKE 1 TABLET BY MOUTH DAILY active Not Available Not Available No t Available famotidine active Not Available Not Av ailable Not Available OneLAX Bisacodyl 10 mg rectal suppository UNWRAP AND INSERT 1 SUPPOSITO RY RECTALLY EVERY DAY NEEDED FOR CONSTIPAT ION 01/09 completed Not Available Not Available Not Available Vitals Date Recorded Body height Body mass index (BMI) Body weight Provider Name and Address Organization Details Last Updated DateTime 01/10/2024 180.34 cm 22.3 kg/m2 46146.78 g Ronny Sanchez MD [address] [place] [address],[address], [place], [address] 01/10/2024 12:31:48 Social History Question Answer Notes LastModified by Organizat ion Details LastModified Time Tobacco Smoking Status Never Smoker Ronny Sanchez MD [address] [facility],[address], [place], [address], [facility] 11/22/2023 17:19:54 What Is Your Level Of Alcohol Consumption? Moderate Information not available 11/22/2023 What Is Your Level Of Caffeine Consumption? Moderate Information not available 11/22/2023 What Was The Date Of Your Most Recent Tobacco Screening? 02/21/2024 [email or web address] Information not available 02/21/2024 Sex: Unknown Functional Status None recorded. Mental Status None recorded. Family History Relationship Description Onset Age of this Age Resolved Age Notes Father No current problems or disability Mother No current problems or disability Medical History Condition Response Other N High Blood Pressure N Kidney Stones N Lung Disease N Depression Y GERD/Acid Reflux Y Sexually Transmitted Infection N Diabetes N Bleeding Disorder N Cancer N High Cholesterol Y Heart Disease N Past Encounters Encounter ID Performer Location Encounter Start Date Encounter Closed Date Diagnosis/Indication Diagnosis SNOMED-CT Code [id number] Ronny Sanchez MD [facility] [address] [facility],[address] [address] 01/10/2024 11:59:16 01/17/2024 16:29:14 Atrophy of kidney [id number] Health Concerns Section Related Observation LastModified by Organization Detai ls LastModified Time None Recorded Concern Status LastModified by Organization Details LastModified Time None Recorded Payers Encounter Date Sequence Insurance Name Policy Number Policy Angelo Covered Member ID Angelo Member ID Guarantor Name 01/10/2024 1 [facility] [place] Moreira [id number] Dallas Moreira Notes Date Note Type Note Provider Name and Address Organization Details Recorded Time 01/10/2024 text/html HPI Notes: Recovering from a left HALN. He did have a post op ileus managed at [facility]. This did not respond to Miralax. He's a month out from surgery and working out at the gym. Ronny Sanchez MD [address] [facility],[address], [place], [address], [facility] 01/10/2024 13:03:19
--- OUTSIDE RECORDS SUMMARY | 2024-03-22 10:24 | XMS_ITS | Continuity of Care Document ---
Author Organization [facility], [facility] Address [address] [address] Care Team Providers Care Director Of Creative Services Name Role Phone KATHRYN MILLER Primary Care Provider [phone] Assessment Encounter Date Assessment Date Assessment LastModified by Organization Details LastModified Time 02/21/2024 02/21/2024 48M with history of UPJ obstruction, s/p left HALN on 12/12/[address] Sanchez. - trimmed protruding suture with sterile scissors - skin looks irritated, but no evidence of infection or abscess at this time so no abx indicated - keep area clean and dry, avoid ointments for now to allow area to dry out more - avoid tubs/pools/la kes for another 10-14 days while area heals - f/u if not improving [email or web address] Not available 02/21/2024 13:03:18 Plan of Treatment Reminders Order Date Submit [...] to ureteropelvic junction obstruction Active 11/07/19 24 dena Sanchez MD [address] [place] [address],[address], [address] , [facility] 11/07/2023 14:39:14 Obstruction of pelviureteric junction Active 02/20/20 24 Tiffany English PA-C [address] [facility] [address] [place] [address], [address] , [facility] 02/20/2024 15:03:16 Problem Notes None recorded. Procedures Surgical History Date Name Laterality Status Provider Name and Address Organization Details Recorded Time 12/12/19 24 NEPHRECTOMY, HAND ASSISTED LAPAROSCOPIC (SURG) [facility] 12/14/2023 11:06:43 08/28/19 22 Colonoscopy completed Ronny Sanchez MD [address] [place] [address],[address], [address], [facility] 01/10/2024 12:32:45 Sinus Surgery completed Ronny Sanchez MD [address] [place] [address],[address] [address] 11/22/2023 17:20:09 Imaging Results None recorded. Procedure [...] and Address Organization Details Last Updated DateTime 02/21/2024 180.34 cm 22.3 kg/m2 94940.78 g Romina Andrea [facility] 02/21/2024 12:28:51 Social History Question Answer Notes LastModified by Organizat ion Details LastModified Time Tobacco Smoking Status Never Smoker Ronny Sanchez MD [address] [facility] [address], [place], [address], [facility] 11/22/2023 17:19:54 What Is Your Level [...] problems or disability Medical History Condition Response Diabetes N Sexually Transmitted Infection N Other N Bleeding Disorder N High Blood Pressure N Kidney Stones N Cancer N Lung Disease N Depression Y High Cholesterol Y GERD/Acid Reflux Y Heart Disease N Past Encounters Encounter ID Performer Location Encounter Start Date Encounter Closed Date Diagnosis/Indication Diagnosis SNOMED-CT Code [id number] Tiffany English PA-C [facility] [address] [address] 02/21/2024 12:03:01 2024 15:26:18 Obstruction of pelviureteric junction [id number] Health Concerns Section Related Observation LastModified by Organization Detai ls LastModified Time None Recorded Concern Status LastModified by Organization Details LastModified Time None Recorded Payers Encounter Date Sequence Insurance Name Policy Number Policy Angelo Covered Member ID Angelo Member ID Guarantor Name 02/21/2024 1 [employer] Moreira [id number] [place] Moreira Notes Date Note Type Note Provider Name and Address Organization Details Recorded Time 02/21/2024 text/html HPI Notes: 48M with history of UPJ obstruction, s/p left HALN on 12/12/[address] Sanchez. Was doing well at post-op visit on 01/09. He spoke to triage team about 2 weeks ago about a pointy part of his incision; he picked off a scab and noticed a pus filled area underneath. Today, he reports a portion of suture is poking out from the inferior aspect of his midline incision (hand assist site). He has been applying ointment and keeping the area covered with a Band-aid. Denies purulent drainage. Denies fever or chills. Tiffany English PA-C [address] [facility],[address], [place], [address], [facility] 02/21/2024 13:03:41
--- OUTSIDE RECORDS SUMMARY | 2024-03-22 10:25 | XMS_ITS | Clinical Summary ---
Author Organization [employer] [facility] [employer] [facility] Address [place], [place] [address] Care Team Providers Care Route Delivery Manager Name Role Phone Clinic, No Pcp Or [...] Other hyperlipidemia 10/29/2023 Persistent depressive disorder 10/29/2023 Immunizations Name Administration Dates Next Due Hepatitis [...] 45-75 02/23/2020 Influenza for age 9-49 04/28/2024 , 07/05/2022, 07/08/2021, Additional history exists Tetanus booster 06/17/2024 06/17/2014 Tdap Completed 06/17/2014 COVID-19 vaccine series Completed 08/23/20, 08/13/2022, 08/22/2021, Additional history exists Pneumococcal series for age 6-64 Aged Out No longer eligible based on patient's age to complete this topic Medical Devices Implanted Type Area Phone Circuit Operator Device Identifier Shelf Expiration Date Model / Serial / Lot Stent Uret [id number] Contour - [id number] Implanted:Qty: 1 on 10/30/2023 by Zurdo Ascencio MD at [facility] Left: [facility] 12/01/2023 [id number] Description:See implant shee t Advance Directives * Full Code (Latest Code [...] Code Status Discussion: Reviewed Preferences Care Teams Route Delivery Manager Relationship Specialty Start Date End Date Clinic, No Pcp Or . PCP - General 11/02/23
== END 2024-03-21 08:10 | disposition home or self-care (01) ==
LOC: NFLDREF 03-22 10:22
PROVIDERS: PCP Family Medicine; Referring Provider Family Medicine; Visit Provider Internal Medicine Nephrology
DX: N18.9 Chronic kidney disease, unspecified (principal); R79.89 Other specified abnormal findings of blood chemistry; Z90.5 Acquired absence of kidney
CPT/HCPCS: 80069; 80076; 82043; 82570; 82610

== ENCOUNTER 2024-03-29 07:02 | Outpatient (CLI) | payer OTHER, SELFPAY ==
--- OUTSIDE RECORDS SUMMARY | 2024-03-29 07:04 | XMS_ITS | Continuity of Care Document ---
Author Organization [facility], [facility] Address [address] [place] [address] Care Team Providers Care Stencil Machine Operator Name Role Phone KATHRYN MILLER Primary Care Provider Assessment No assessment recorded. Plan of Treatment [...] Active 11/07/19 24 left Ronny Sanchez MD [address] [place] [address],[address] [place] [address], [address] , [facility] 11/07/2023 14:39:14 Obstruction of pelviureteric junction Active 02/20/20 24 Tiffany English PA-C [address] [place] [address],[address], [place], [address] , [facility] 02/20/2024 15:03:16 Problem Notes None recorded. Procedures Surgical History Date Name Laterality Status Provider Name and Address Organization Details Recorded Time 12/12/19 24 NEPHRECTOMY, HAND ASSISTED LAPAROSCOPIC (SURG) completed Yane lu [facility] 12/14/2023 11:06:43 08/28/19 22 Colonoscopy completed Ronny Sanchez MD [address] [place] [address],[address], [place], [address], [facility] 01/10/2024 12:32:45 Sinus Surgery completed Ronny Sanchez MD [address] [place] [address],[address], [place], [address], [facility] 11/22/2023 17:20:09 Imaging Results None recorded. [...] Updated DateTime 01/10/2024 180.34 cm 22.3 kg/m2 81681.78 g Ronny Sanchez MD [address] [place] [address],[address], [place], [address] 01/10/2024 12:31:48 Social History Question Answer Notes LastModified by Organizat ion Details LastModified Time Tobacco Smoking Status Never Smoker Ronny Sanchez MD [address] [facility],[address], [place], [address], [facility] 11/22/2023 17:19:54 What Is Your Level [...] problems or disability Medical History Condition Response Sexually Transmitted Infection N Diabetes N Other N Bleeding Disorder N High Blood Pressure N Kidney Stones N High Cholesterol Y GERD/Acid Reflux Y Heart Disease N Cancer N Depression Y Lung Disease N Past Encounters Encounter ID Performer Location Encounter Start Date Encounter Closed Date Diagnosis/Indication Diagnosis SNOMED-CT Code [id number] Ronny Sanchez MD [facility] [address] [facility],[address] [address] 01/10/2024 11:59:16 01/17/2024 16:29:14 Atrophy of kidney [id number] Health Concerns Section Related Observation LastModified by Organization Detai ls LastModified Time None Recorded Concern Status LastModified by Organization Details LastModified Time None Recorded Payers Encounter Date Sequence Insurance Name Policy Number Policy Angelo Covered Member ID Angelo Member ID Guarantor Name 01/10/2024 1 [facility] [place] Moreira [id number] Dallas Moreira Notes Date Note Type Note Provider Name and Address Organization Details Recorded Time 01/10/2024 text/html HPI Notes: Recovering from a left HALN. He did have a post op ileus managed at [facility]. This did not respond to Miralax. He's a month out from surgery and working out at the gym. Ronny Sanchez MD [address] [facility],[address], [place], [address], [facility] 01/10/2024 13:03:19
--- OUTSIDE RECORDS SUMMARY | 2024-03-29 07:04 | XMS_ITS | Clinical Summary ---
Author Organization [facility] Address [place], [place] [address] Care Team Providers Care Weir Fisher Name Role Phone Clinic, No Pcp Or [...] this topic Medical Devices Implanted Type Area Truck Chauffeur Device Identifier Shelf Expiration Date Model / Serial / Lot Stent Uret [id number] Contour - [id number] Implanted:Qty: 1 on 10/30/2023 by Zurdo Ascencio MD at [facility] Left: Ure[facility] 12/01/2023 [id number] Description:See implant shee t Advance Directives * [...] Code Status Discussion: Reviewed Preferences Care Teams Weir Fisher Relationship Specialty Start Date End Date Clinic, No Pcp Or . PCP - General 11/02/23
--- OUTSIDE RECORDS SUMMARY | 2024-03-29 07:04 | XMS_ITS | Continuity of Care Document ---
Author Organization [facility], [facility] Address [address] [place] [address] Care Team Providers Care Licensing Services Clerk Name Role Phone KATHRYN MILLER Primary Care Provider Assessment Encounter Date Assessment Date Assessment LastModified [...] area heals - f/u if not improving [email or web address] Not available 02/21/2024 13:03:18 Plan of Treatment [...] obstruction Active 11/07/19 24 dena Sanchez MD [address] [place] [address],[address], [address] , [facility] 11/07/2023 14:39:14 Obstruction of pelviureteric junction Active 02/20/20 24 Tiffany English PA-C [address] [facility] [address] [place] [address], [address] , [facility] 02/20/2024 15:03:16 Problem Notes None recorded. Procedures Surgical History Date Name Laterality Status Provider Name and Address Organization Details Recorded Time 12/12/19 24 NEPHRECTOMY, HAND ASSISTED LAPAROSCOPIC (SURG) [facility] 12/14/2023 11:06:43 08/28/19 22 Colonoscopy completed Ronny Sanchez MD [address] [place] [address],[address], [address], [facility] 01/10/2024 12:32:45 Sinus Surgery completed Ronny Sanchez MD [address] [place] [address],[address] [address] 11/22/2023 17:20:09 Imaging Results None [...] Updated DateTime 02/21/2024 180.34 cm 22.3 kg/m2 74614.78 g Romina Andrea [facility] 02/21/2024 12:28:51 Social History Question Answer Notes LastModified by Organizat ion Details LastModified Time Tobacco Smoking Status Never Smoker Ronny Sanchez MD [address] [facility] [address], [place], [address], [facility] 11/22/2023 17:19:54 What Is Your [...] High Blood Pressure N Kidney Stones N Depression Y Lung Disease N GERD/Acid Reflux Y Diabetes N Sexually Transmitted Infection N Bleeding Disorder N Cancer N High Cholesterol Y Heart Disease N Past Encounters Encounter ID Performer Location Encounter Start Date Encounter Closed Date Diagnosis/Indication Diagnosis SNOMED-CT Code [id number] Tiffany English PA-C [facility] [address] [address] 02/21/2024 12:03:01 2024 15:26:18 Obstruction of pelviureteric junction [id number] Health Concerns Section Related Observation LastModified by Organization Detai ls LastModified Time None Recorded Concern Status LastModified by Organization Details LastModified Time None Recorded Payers Encounter Date Sequence Insurance Name Policy Number Policy Angelo Covered Member ID Angelo Member ID Guarantor Name 02/21/2024 1 [employer] Moreira [id number] [place] Moreira Notes Date Note Type Note [...] fever or chills. Tiffany English PA-C [address] [facility],[address], [place], [address], [facility] 02/21/2024 13:03:41
--- OUTSIDE RECORDS SUMMARY | 2024-03-29 07:04 | XMS_ITS | Data Portability ---
Author Organization [place] [facility], [facility] Address [address] [facility] [address] [place] [address] Care Team Providers Care Director Intelligence Analysis Programs Name Role Phone KATHRYN MILLER Primary Care Provider [phone] Assessment Encounter Date Assessment Date Assessment LastModified [...] area heals - f/u if not improving [email or web address] Not available 02/21/2024 13:03:18 Plan of Treatment Reminders Order Date Submit Date Provider Last Modified By Organization Details Last Modified Time Details Appointments None recorded. Lab None recorded. Referral None recorded. Procedures None recorded. Surgeries None recorded. Imaging XR, abdomen 024 024 [facility], [address] [facility], [address], [place], [address], 10:29:06 Medication Orders None recorded. Patient TargetsNo targets recorded. Patient InstructionsNo instructions recorded. Reason for Referral None Reported. Results Created Date Observation Date Name Description Value Unit Range Abnormal Flag LastModifiedBy Organization Detail LastModifiedTime 11/03/19 24 11/03/2023 CT, urogr am No observ ation record ed. [facility] [address] [facility], [place], [address], 11/06/2023 13:57:39 11/27/19 24 XR, abdom en No observ ation record ed. [address], [place], [address], 12/07/2023 14:44:44 Result Notes None recorded. 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 Procedures Surgical History Date Name Laterality Status Provider Name and Address Organization Details Recorded Time 12/12/19 24 NEPHRECTOMY, HAND ASSISTED LAPAROSCOPIC (SURG) completed Yane lu [facility] 12/14/2023 11:06:43 08/28/19 22 Colonoscopy completed Ronny Sanchez MD [address] [place] [address],[address], [place], [address], [facility] 01/10/2024 12:32:45 Sinus Surgery completed Ronny Sanchez MD [address] [place] [address],[address], [place], [address], [facility] 11/22/2023 17:20:09 Imaging Results Imaging Date Name Status LastModified by Organiz ation Details LastModified Time 11/03/2023 CT, urogram completed [address] [place], [address], 11/06/2023 13:57:39 11/27/2023 XR, abdomen completed [address] [facility] [address], [place], [address], 12/07/2023 14:44:44 Procedure Notes None recorded. Medical Equipment None [...] and Address Organization Details Last Updated DateTime 11/22/2023 180.34 cm 22.3 kg/m2 03507.78 g Ronny Sanchez MD [address] [facility],[address], [place], [address], [facility] [facility] 11/22/2023 17:18:01 Date Recorded Body height Body mass index (BMI) Body weight Provider Name and Address Organization Details Last Updated DateTime 01/10/2024 180.34 cm 22.3 kg/m2 86308.78 g Ronny Sanchez MD [address] [facility],[address], [place], [address] 01/10/2024 12:31:48 Date Recorded Body height Body mass index (BMI) Body weight Provider Name and Address Organization Details Last Updated DateTime 02/21/2024 180.34 cm 22.3 kg/m2 57808.78 g Romina Mendez [facility] 02/21/2024 12:28:51 Social History Question Answer Notes LastModified by Organizat ion Details LastModified Time Tobacco Smoking Status Never Smoker Ronny Sanchez MD [address] [facility] [address], [place], [address] 11/22/2023 17:19:54 What Is [...] Encounter Closed Date Diagnosis/Indication Diagnosis SNOMED-CT Code [id number] MD REENA Francois_Angi [address] [place] [address] 11/22/2023 17:00:15 12/13/2023 12:13:27 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 [id number] MD REENA Francois_Angi [address] [place] [address] 01/10/2024 11:59:16 01/17/2024 16:29:14 Atrophy of kidney [id number] Tiffany English PA-C [facility] [address] [place] [address] 02/21/2024 12:03:01 2024 15:26:18 Obstruction of pelviureteric junction [id number] Health Concerns Section Related Observation LastModified by Organization Detai ls LastModified Time None Recorded Concern Status LastModified by Organization Details LastModified Time None Recorded Advance Directives Directive None Recorded Payers Encounter Date Sequence Insurance Name Policy Number Policy Angelo Covered Member ID Angelo Member ID Guarantor Name 11/22/2023 1 [facility] Dallassandra Herreraiard [id number] Dallassandra Herreraiard 01/10/2024 1 [facility] Dallassandra Herreraiard [id number] Dallassandra Herreraiard 02/21/2024 1 [facility] Dallassandra Herreraiard [id number] [place] De La Rosad Notes Date Note Type Note Provider Name and Address Organization Details Recorded Time 11/22/2023 text/html HPI Notes: 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 He is tolerating the stent. He never remembers having renal colic. The current bout caused pain and emesis. Prior to that his creatinine had been rising. Ronny Sanchez MD [address] [place] [address],[address], [place], [address], [facility] 12/12/2023 15:34:23 01/10/2024 text/html HPI Notes: Recovering from a left HALN. He did have a post op ileus managed at [facility]. This did not respond to Miralax. He's a month out from surgery and working out at the gym. Ronny Sanchez MD [address] [place] [address],[address], [place], [address], [facility] 01/10/2024 13:03:19 02/21/2024 text/html HPI Notes: 48M with history [...] Denies fever or chills. Tiffany English PA-C [address] [place] [address],[facility] [address], [place], [address], [facility] 02/21/2024 13:03:41
--- NOTE | 2024-03-29 07:15 | CRLHL7_ITS ---
For Patients: As a result of the Century Cures Act, medical imaging exams and procedure reports are released immediately into your electronic medical record. You may view this report before your referring provider. If you have questions, please contact your health care provider. INDICATION: Abnormal blood chemistry TECHNIQUE: Ultrasound abdomen limited. Sonographic images of the right upper quadrant were obtained using gutierrez-scale and color Doppler images. COMPARISON: Abdomen and pelvis CT 10/29/2023 FINDINGS: Liver: Normal in size and echotexture. No masses. No intrahepatic biliary dilatation. Gallbladder: No stones or sludge. Normal wall thickness. No pericholecystic fluid. Common bile duct: 3 mm. Pancreas: Normal. Right kidney: Normal in size. Normal echotexture and cortex. Complex right renal lesion measuring 5.1 x 3.6 x 5.0 centimeters with multiple septations. Vasculature: Proximal abdominal aorta and IVC are normal. IMPRESSION: 1. Complex right renal lesion measuring 5.1 centimeters with multiple septations which are thin and without vascularity. This is considered a Bosniak class 2F lesion. Follow-up study is suggested in 12 months. 2. Remainder of the right upper quadrant ultrasound is within normal limits. Dictated by Ambrocio Montero MD @ 03/29/2024 12:41:11 PM (Electronically Signed)
== END 2024-03-29 07:03 | disposition home or self-care (01) ==
LOC: US 07:03
PROVIDERS: PCP Family Medicine; Visit Provider Family Medicine
DX: R79.89 Other specified abnormal findings of blood chemistry (principal); N28.9 Disorder of kidney and ureter, unspecified; E78.00 Pure hypercholesterolemia, unspecified
CPT/HCPCS: 76705

== ENCOUNTER 2024-06-28 08:21 | Outpatient (CLI) | payer OTHER, SELFPAY ==
--- OUTSIDE RECORDS SUMMARY | 2024-07-01 16:20 | XMS_ITS | Clinical Summary ---
Author Organization [facility] Address [address] [place] [address] Care Team Providers Care Steam Power Plant Operator Name Role Phone Nathenlanie Maylin Mary Anne DO Unavailable [phone] Joshua Peacock MD Primary Care Provider [phone] Maylin Springer DO Unavailable [phone] Allergies Active Allergy Reactions Criticality Noted Date Comments No Known Drug Allergy 11/13/2002 Medications VALTREX 500 MG OR TABS 1 PO BID X 5 DAYS 10 11 4 Active Additional Information Patient taking differently: PRN, Reported on 05/30/2024 DUAC 1-5 % EX GELIndications:O ther acne apply daily for acne 1 0 8 Active TAZORAC 0.1 % EX CREAIndications: Other acne apply daily for acne 1 0 8 Active KETOCONAZOLE 200 MG OR TABSIndications: Dermatophytosis of the body 1 TABLET WEEKLY 14 0 8 Active FLUTICASONE PROPIONATE (NASAL) 50 MCG/ACT NA SUSPIndications: Allergic rhinitis, cause unspecified 1 spray in each nostil daily 1 mdi 11 8 Active Additional Information Patient not taking.Reported on 05/30/2024 PROTONIX 40 MG OR TBECIndications: Esophageal reflux 1 TABLET DAILY 30 11 8 Active Additional Information Patient not taking.Reported on 05/30/2024 rosuvastatin (CRESTOR) 5 MG tablet Take 5 mg by mouth daily. Active escitalopram (LEXAPRO) 10 MG tablet Take 10 mg by mouth daily. Active famotidine (PEPCID) 20 MG tablet Take 20 mg by mouth daily. Active Active Problems Problem Noted Date Diagnosed Date Herpes simplex virus (HSV) infection 11/13/2002 Overview (05/28/2015): Problem list name updated by automated process. Provider to review Esophageal reflux 11/13/2002 Other acne 11/13/2002 Encounters Date Type Department Care Team Description 05/30/2024 4:15 PM CDT Office Visit [address] [place] [address] Maylin Springer, Screening for cardiovascular condition (Primary Dx); Stage 3 chronic kidney disease, unspecified whether stage 3a or 3b CKD (H); Hyperlipidemia LDL goal <100 05/30/2024 Travel from Last 3 Months Immunizations Name Administration Dates Next Due HEPA 11/13/2002 Family History Medical History Relation Comments Family History Negative Brother alive ag e 29 Cardiovascular Father hyperlipidemia Family History Negative Father alive ag e 59 Family History Negative Mother alive ag e 58 Relation Status Comments Brother Father Mother Social History Tobacco Use Types Packs/Day Years Used Date Smoking Tobacco: Never Smokeless Tobacco: Never Tobacco Cessation:Counseling Given: Not Answered Alcohol Use Standard Drinks/Week Comments Yes 0 (1 standard drink = 0.6 oz pur e alcohol) 1-2 per day PHQ-2 Answer Date Recorded PHQ-2 Score 1 05/30/2024 Sex and Gender Information Value Date Recorded Sex Assigned at Not on file Legal Sex Male 3:27 AM BUZZLE BUFFER Gender Identity Not on file Sexual Orientation Not on file 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 [address] [place] [address] Maylin Springer DO [address] [place] [address] Health Maintenance Due Date Last Done Comments ADVANCE CARE PLANNING 1975 ANNUAL REVIEW OF HM ORDERS 1975 CT COLONOGRAPHY 1975 FIT 1975 FLEX SIG 1975 sDNA (Cologuard) 1975 COLONOSCOPY 1985 COLORECTAL CANCER SCREENING 1985 HIV SCREENING 1990 HEPATITIS C SCREENING 1993 HEPATITIS B IMMUNIZATION (1 of 3 - 19+ 3-dose series) 1994 LIPID 10/03/2008 10/03/2007, 01/27/2003 YEARLY PREVENTIVE VISIT 10/03/2008 10/03/2007, 11/13 GLUCOSE 10/03/2010 10/03/2007, 01/27/2003 COVID-19 Vaccine ( season) 2024 08/23/2023, 08/13/2022, 08/22/2021, Additional history exists INFLUENZA VACCINE (#1) 2024 , 07/05/2022, 07/08/2021, Additional history exists DTAP/TDAP/TD IMMUNIZATION (2 - Td or Tdap) 06/17/2024 06/17/2014 ZOSTER IMMUNIZATION (1 of 2) 2025 RSV VACCINE (1 - 1-dose 75+ series) 2050 PHQ-2 (once per calendar year) Completed 05/30/2024 HPV IMMUNIZATION Aged Out No longer e ligible based on patient's age to complete this topic MENINGITIS IMMUNIZATION Aged Out No l onger eligible based on patient's age to complete this topic Pneumococcal Vaccine: Pediatrics (0 to 5 Years) and At-Risk Patients (6 to 64 Years) Aged Out No longer eligible based on patient's age to complete this topic RSV MONOCLONAL ANTIBODY Aged Out No l onger eligible based on patient's age to complete this topic Procedures Procedure Name Priority Date/Time Associated Diagnosis Comments EKG 12-LEAD COMPLETE W/READ - CLINICS Routine 05/30/2024 Screening for cardiovascular condition HCL BASIC METABOLIC PANEL Routine 10/03/2007 9:14 AM BUZZLE BUFFER Routine Medical Exam CL AFF A.M.A. LIPID PANEL Routine 10/03/2007 9:14 AM BUZZLE BUFFER Routine Medical Exam from Last 3 Months or Most Recently Relevant to Health Maintenance Results * EKG 12-lead complete w/read - Clinics (performed today) (05/30/2024) Maylin Springer DO ECG ORDERABLES Fin al Result * A.M.A. BASIC METABOLIC PANEL (10/03/2007 9:14 AM BUZZLE BUFFER) Sodium 138 133 - 144 mmol/L [facility] Potassium 3.9 3.4 - 5.3 mmol/L [facility] Chloride 101 94 - 109 mmol/L [facility] Carbon Dioxide 30 20 - 32 mmol/L [facility] Anion Gap 7 6 - 17 mmol/L [facility] Glucose 92 60 - 99 mg/dL [facility] Urea Nitrogen 11 5 - 24 mg/dL [facility] Creatinine 1.04 0.80 - 1.50 mg/dL [facility] GFR Estimate 88 >60 mL/min/1.7 m2 [facility] GFR Estimate If Black >90 >60 mL/min/1.7 m2 [facility] Calcium 9.8 8.5 - 10.4 mg/dL [facility] 10/03/2007 9:14 AM BUZZLE BUFFER 10/03/2007 9:15 AM BUZZLE BUFFER us Indio Bar MD LABORATORY Final Resul t Performing Organization Address [facility] de Phone Number [facility] [address] [address] * (ABNORMAL) A.M.A. LIPID PANEL (10/03/2007 9:14 AM BUZZLE BUFFER) Cholesterol 157 0 - 200 mg/dL [facility] Comment: LDL Cholesterol is the primary guide to therapy: LDL-cholesterol goal in high risk patients is <100 mg/dL and in very high risk patients is <70 mg/dL. The NCEP recommends further evaluation of: patients with cholesterol <200 mg/dL if additional risk factors are present, cholesterol >240 mg/dL, triglycerides >150 mg/dL, or HDL <40 mg/dL. Triglycerides 131 0 - 150 mg/dL [facility] HDL Cholesterol 33(L) 40 - 110 mg/dL [facility] LDL Cholesterol Calculated 98 0 - 129 mg/dL [facility] VLDL-Cholesterol 26 0 - 30 mg/dL [facility] Cholesterol/HDL Ratio 4.7 0.0 - 5.0 [facility] 10/03/2007 9:14 AM BUZZLE BUFFER 10/03/2007 9:15 AM BUZZLE BUFFER us Indio Bar MD LABORATORY Final Resul t Performing Organization Address [facility] Co de Phone Number [facility] [address] [address] from Last 3 Months or Most Recently Relevant to Health Maintenance Insurance [facility] Care Teams Steam Power Plant Operator Relationship Specialty Start Date End Date Joshua Peacock MD [facility] [address] [address] PCP - General Family Medicine 05/20/24 Maylin Springer DO [address] [place] [address] Physician Cardiovascular Disease 05/20/24 Maylin Springer DO [address] [place] [address] Assigned Heart and Vascular Provider 06/19/24
--- OUTSIDE RECORDS SUMMARY | 2024-07-01 16:20 | XMS_ITS | Referral Summary ---
Author Organization [place] Address [address] [place] [address] Care Team Providers Care Performance Consultant Name Role Phone Maylin Springer DO Unavailable [phone] Joshua Peacock MD Primary Care Provider [phone] Maylin Springer DO Unavailable [phone] Encounters Date Type Department Care Team Description 05/30/2024 Travel 05/30/2024 4:15 PM CDT Office Visit [facility] [address] [place] [address] Maylin Springer DO Screening for cardiovascular condition (Primary Dx); Stage 3 chronic kidney disease, unspecified whether stage 3a or 3b CKD (H); Hyperlipidemia LDL goal <100 from Last 3 Months Allergies Active Allergy Reactions Criticality Noted Date [...] review Esophageal reflux 11/13/2002 Other acne 11/13/2002 Immunizations Name Administration Dates Next Due HEPA 11/13/2002 Social History Tobacco Use Types Packs/Day Years [...] on file Legal Sex Male 3:27 AM CV RN Gender Identity Not on file Sexual Orientation Not on file 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 Not on file Not on f ile Last Filed Vital Signs Vital Sign Reading Time Taken Comments Blood Pressure 116/84 05/30/2024 4:14 PM CDT Pulse 66 05/30/2024 4:14 PM CDT Temperature - - Respiratory Rate 16 11/10/2003 8:15 AM CV RN Oxygen Saturation - - Inhaled Oxygen Concentration - - Weight 78 kg (172 lb) 05/30/2024 4:14 PM CDT Height 180.3 cm (5' 11) 05/30/2024 4:14 PM CDT Body Mass Index 23.99 05/30/2024 4:14 PM CDT Plan of Treatment Upcoming Encounters Date Type Department Care Team (Late st Contact Info) Description 07/16/2024 4:00 PM CV RN Appointment [facility] [address] [place] [address] Maylin Springer DO [address] [place] [address] Procedures Procedure Name Priority Date/Time Associated Diagnosis Comments EKG 12-LEAD COMPLETE W/READ - CLINICS Routine 05/30/2024 Screening for cardiovascular condition HCL BASIC METABOLIC PANEL Routine 10/03/2007 9:14 AM CV RN Routine Medical Exam CL AFF A.M.A. LIPID PANEL Routine 10/03/2007 9:14 AM CV RN Routine Medical Exam from Last 3 Months or Most Recently Relevant to Health Maintenance Results * EKG 12-lead complete w/read - Clinics (performed today) (05/30/2024) Maylin Springer DO ECG ORDERABLES Fin al Result * A.M.A. BASIC METABOLIC PANEL (10/03/2007 9:14 AM CV RN) Sodium 138 133 - 144 mmol/L [facility] Potassium 3.9 3.4 - 5.3 mmol/L [facility] Chloride 101 94 - 109 mmol/L [facility] Carbon Dioxide 30 20 - 32 mmol/L [facility] Anion Gap 7 6 - 17 mmol/L [facility] Glucose 92 60 - 99 mg/dL [facility] Urea Nitrogen 11 5 - 24 mg/dL [facility] Creatinine 1.04 0.80 - 1.50 mg/dL [facility] GFR Estimate 88 >60 mL/min/1.7 m2 [facility] GFR Estimate If Black >90 >60 mL/min/1.7 m2 [facility] Calcium 9.8 8.5 - 10.4 mg/dL [facility] 10/03/2007 9:14 AM CV RN 10/03/2007 9:15 AM CV RN us Indio Bar MD LABORATORY Final Resul t Performing Organization Address City/[facility] Co de Phone Number [facility] [address] [place] [phone] * (ABNORMAL) A.M.A. LIPID PANEL (10/03/2007 9:14 AM CV RN) [facility] Signature Cholesterol 157 0 - 200 mg/dL [facility] Comment: LDL Cholesterol is the primary guide to therapy: LDL-cholesterol goal in high risk patients is <100 mg/dL and in very high risk patients is <70 mg/dL. The NCEP recommends further evaluation of: patients with cholesterol <200 mg/dL if additional risk factors are present, cholesterol >240 mg/dL, triglycerides >150 mg/dL, or HDL <40 mg/dL. Triglycerides 131 0 - 150 mg/dL [facility] HDL Cholesterol 33(L) 40 - 110 mg/dL [facility] LDL Cholesterol Calculated 98 0 - 129 mg/dL [facility] VLDL-Cholesterol 26 0 - 30 mg/dL [facility] Cholesterol/HDL Ratio 4.7 0.0 - 5.0 [facility] 10/03/2007 9:14 AM CV RN 10/03/2007 9:15 AM CV RN us Indio Bar MD LABORATORY Final Resul t Performing Organization Address [facility] Co de Phone Number [facility] [address] [place] [phone] from Last 3 Months or Most Recently Relevant to Health Maintenance Insurance [employer] Care Teams Performance Consultant Relationship Specialty Start Date End Date Joshua Peacock MD [facility] [address] [address] PCP - General Family Medicine 05/20/24 Maylin Springer DO [address] [place] [address] Physician Cardiovascular Disease 05/20/24 Maylin Springer DO [address] [place] [address] Assigned Heart and Vascular Provider 06/19/24
--- OUTSIDE RECORDS SUMMARY | 2024-07-01 16:20 | XMS_ITS | Encounter Summary ---
Author Organization [place] Address [address] [place] [address]. [place] [address] Care Team Providers Care Transit Mixer Driver Name Role Phone Maylin Springer DO Unavailable [phone] Joshua Peacock MD Primary Care Provider [phone] Encounter Details Date Type Department Care Team (Latest Contact Info) Description 05/30/2024 Travel Social History Tobacco Use Types Packs/Day Years Used Date Smoking Tobacco: Never Smokeless Tobacco: Never Alcohol Use Standard Drinks/Week Comments Yes 0 (1 standard drink = 0.6 oz pur e alcohol) 1-2 per day PHQ-2 Answer Date Recorded PHQ-2 Score 1 05/30/2024 Sex and Gender Information Value Date Recorded Sex Assigned at Not on file Legal Sex Male 3:27 AM BINDING STITCHER Gender Identity Not on file Sexual Orientation Not on file 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 Not on file Not on f ile documented as of this encounter Plan of Treatment Upcoming Encounters Date Type Department Care Team (Late st Contact Info) Description 07/16/2024 4:00 PM BINDING STITCHER Appointment [facility] [address] [place] [address] Maylin Springer DO [address] [facility] [address] [place] [address] documented as of this encounter Visit Diagnoses Not on filedocumented in this encounter Care Teams Transit Mixer Driver Relationship Specialty Start Date End Date Joshua Peacock MD [facility] [address], [place] [address] PCP - General Family Medicine 05/20/24 Maylin Springer DO [address] [place] [address] Physician Cardiovascular Disease 05/20/24 documented as of this encounter
--- OUTSIDE RECORDS SUMMARY | 2024-07-01 16:21 | XMS_ITS | Encounter Summary ---
Author Organization [place] Address [address] [place] [address]. [place] [address] Care Team Providers Care Artillery Meteorological Man Name Role Phone Indio Bar MD Primary Care Provider [phone] Maylin Springer DO Unavailable [phone] Joshua Peacock MD Primary Care Provider [phone] Maylin Springer DO Unavailable [phone] Encounter Details Date Type Department Care Team (Late st Contact Info) Description 10/29/2002 Abstract M [address] [phone] Bryan Milan MD [facility] AT [address] [place] [address] Social History Tobacco Use Types Packs/Day Years Used Date Smoking Tobacco: Never Assessed Sex and Gender Information Value Date Recorded Sex Assigned at Not on file Legal Sex Male 3:27 AM GRID MOLDER Gender Identity Not on file Sexual Orientation Not on file documented as of this encounter Plan of Treatment Upcoming Encounters Date Type Department Care Team (Late st Contact Info) Description 07/16/2024 4:00 PM GRID MOLDER Appointment M [facility] [address] [facility] [address] [place] [address] Maylin Springer DO [address] [place] [address] documented as of this encounter Visit Diagnoses Not on filedocumented in this encounter Care Teams Artillery Meteorological Man Relationship Specialty Start Date End Date Indio Bar MD [address] [place] [address] PCP - General 11/15/02 05/19/24 Joshua Peacock MD [facility] [address] [place] [address] PCP - General Family Medicine 05/20/24 Maylin Springer DO [address] [place] [address] Physician Cardiovascular Disease 05/20/24 Maylin Springer DO [address] [place] [address] Assigned Heart and Vascular Provider 06/19/24 documented as of this encounter
--- OUTSIDE RECORDS SUMMARY | 2024-07-01 16:21 | XMS_ITS | Encounter Summary ---
Author Organization [place] Address [address] [place] [address]. [place] [address] Care Team Providers Care Cmm Programmer Name Role Phone Indio Bar MD Primary Care Provider [phone] Maylin Springer DO Unavailable [phone] Joshua Peacock MD Primary Care Provider [phone] Maylin Springer DO Unavailable [phone] Encounter Details Date Type Department Care Team (Late st Contact Info) Description 03/21/2024 External Order Results [facility] [address] [place] [address] Outside, Provider Social History Tobacco Use Types Packs/Day Years Used Date Smoking Tobacco: Never Alcohol Use Standard Drinks/Week Comments Yes 0 (1 standard drink = 0.6 oz pur e alcohol) one/night Sex and Gender Information Value Date Recorded Sex Assigned at Not on file Legal Sex Male 3:27 AM WOOL CLEANER Gender Identity Not on file Sexual Orientation Not on file 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 Not on file Not on file Not on f ile documented as of this encounter Plan of Treatment Upcoming Encounters Date Type Department Care Team (Late st Contact Info) Description 07/16/2024 4:00 PM WOOL CLEANER Appointment [facility] [address] [facility] [address] [place] [address] Maylin Springer DO [address] [facility] [address] [place] [address] documented as of this encounter Procedures Procedure Name Priority Date/Time Associated Diagnosis Comments ROUTINE UA WITH MICROSCOPIC Routine 03/21/2024 8:09 AM CDT PHOSPHORUS Routine 03/21/2024 8:09 AM CDT ALBUMIN RANDOM URINE QUANTITATIVE Routine 03/21/2024 8:09 AM CDT CYSTATIN C WITH GFR Routine 03/21/2024 8 :09 AM CDT COMPREHENSIVE METABOLIC PANEL Routine 03/21/2024 8:09 AM CDT CBC WITH PLATELETS Routine 03/21/2024 8: 09 AM CDT documented in this encounter Results * (ABNORMAL) Comprehensive metabolic panel (03/21/2024 8:09 AM CDT) Sodium (External) 136 135 - 149 mmol/L NON-INTERFACED (ONBASE SCANS) Potassium (External) 4.4 3.6 - 5.1 mmol/L NON-INTERFACED (ONBASE SCANS) Chloride (External) 108 96 - 114 mmol/l NON-INTERFACED (ONBASE SCANS) CO2 (External) 28 20 - 32 mmol/L NON-INTERFACED (ONBASE SCANS) Anion Gap (External) 8 7 - 15 mEq/L NON-INTERFACED (ONBASE SCANS) Urea Nitrogen (External) 22 5 - 24 mg/dl NON-INTERFACED (ONBASE SCANS) Creatinine (External) 1.5 0.5 - 1.5 mg/dL NON-INTERFACED (ONBASE SCANS) GFR Estimated (External) 57 ml/min NON-INTERFACED (ONBASE SCANS) Calcium (External) 9.6 8.4 - 10.6 mg/dl NON-INTERFACED (ONBASE SCANS) Glucose (External) 93 60 - 115 mg/dl NON-INTERFACED (ONBASE SCANS) Protein Total (External) 7.5 6.0 - 8.3 g/dl NON-INTERFACED (ONBASE SCANS) Albumin (External) 4.9 3.3 - 5.0 g/dl NON-INTERFACED (ONBASE SCANS) Bilirubin Total (External) 0.9 0.1 - 1.5 mg/dl NON-INTERFACED (ONBASE SCANS) Bilirubin Direct (External) 0.3 0.0 - 0.5 mg/dl NON-INTERFACED (ONBASE SCANS) AST (External) 59(H) 12 - 35 U/L NON-INTERFACED (ONBASE SCANS) ALT (External) 75(H) 4 - 50 U/L NON- INTERFACED (ONBASE SCANS) Alk Phosphatase (External) 67 40 - 150 U/L NON-INTERFACED (ONBASE SCANS) Blood BLOOD SPECIMEN / Unknown 03/21/2024 8:09 AM CDT Narrative [facility] - 05/24/2024 1:38 PM CDT Verified by Charlotte Mack on 05/24/2024. us Provider Outside LAB - BLOOD ORDERABLES Edited R esult - Final [facility] PFT NON-INTERFACED (ONBASE SCANS) * UA with Microscopic (03/21/2024 8:09 AM CDT) Color Urine (External) Yellow Yellow NON-INTERFAC ED (ONBASE SCANS) Appearance Urine (External) Clear Clear NON-INTERFAC ED (ONBASE SCANS) Glucose Urine (External) Negative Negative NON-INTERFAC ED (ONBASE SCANS) Bilirubin Urine (External) Negative Negative NON-INTERFAC ED (ONBASE SCANS) Ketones Urine (External) Negative Negative NON-INTERFAC ED (ONBASE SCANS) Specific [place] Urine (External) 1.010 1.000 - 1.030 NON-INTERFAC ED (ONBASE SCANS) Blood Urine (External) Negative negative NON-INTERFAC ED (ONBASE SCANS) pH Urine (External) 6.0 5.0 - 8.5 NON-INTERFAC ED (ONBASE SCANS) Protein Albumin Ur (External) Negative Negative NON-INTERFAC ED (ONBASE SCANS) Urobilinogen (External) 0.2 0.2 - 1.0 NON-INTERFAC ED (ONBASE SCANS) Nitrites Urine (External) Negative Negative NON-INTERFAC ED (ONBASE SCANS) Leukocyte Esterase Urine (External) Negative Negative NON-INTERFAC ED (ONBASE SCANS) Urine 03/21/2024 8:09 AM CDT Narrative [facility] - 05/24/2024 1:38 PM CDT Verified by Charlotte Mack on 05/24/2024. Provider Outside LAB - URINE ORDERABLES Edited R [employer] Performing Organization Address [facility] de Phone Number [facility] PFT NON-INTERFACED (ONBASE SCANS) * Albumin Random Urine Quantitative with Creat Ratio (03/21/2024 8:09 AM CDT) Creatinine Urine mg/dL (External) 106.6 mg/dl NON-INTERFA CE D (ONBASE SCANS) Microalbumin Urine (External) <1 mg/dL NON-INTERFA CE D (ONBASE SCANS) Microalbumin Urine mg/g Cr (External) 0 0 - 30 mg/g NON-INTERFACE D (ONBASE SCANS) Urine 03/21/2024 8:09 AM CDT Narrative [facility]FT - 05/24/2024 1:38 PM CDT Verified by Charlotte Mack on 05/24/2024. Provider Outside LAB - URINE ORDERABLES Edited [employer] Performing Organization Address [facility] de Phone Number [facility]ZE PFT NON-INTERFACED (ONBASE SCANS) * (ABNORMAL) Cystatin C with GFR (03/21/2024 8:09 AM CDT) CYSTATIN C (External) 1.4(H) 0.5 - 1.2 mg/L NON-INTERFACED (ONBASE SCANS) GFR Calculated with Cystatin C 52(L) >=60 ml/min/BSA NON-INTERFACED (ONBASE SCANS) Blood BLOOD SPECIMEN / Unknown 03/21/2024 8:09 AM CDT Narrative [facility]FT - 05/24/2024 1:38 PM CDT Verified by Charlotte Mack on 05/24/2024. Provider Outside LAB - BLOOD ORDERABLES Edited [facility] Performing Organization Address [facility] Co de Phone Number [facility]ZE PFT NON-INTERFACED (ONBASE SCANS) * CBC with platelets (03/21/2024 8:09 AM CDT) WBC Count (External) 4.77 4.50 - 11.00 K/uL NON-INTERFACED (ONBASE SCANS) RBC Count (External) 5.15 4.30 - 5.90 m/uL NON-INTERFACED (ONBASE SCANS) Hemoglobin (External) 15.4 13.5 - 17.5 gm/dL NON-INTERFACED (ONBASE SCANS) Hematocrit (External) 44.6 37.0 - 53.0 % NON-INTERFACED (ONBASE SCANS) MCV (External) 87 80 - 100 fL NON-INTERFACED (ONBASE SCANS) MCH (External) 30 26 - 34 pg NON- INTERFACED (ONBASE SCANS) MCHC (External) 35 32 - 36 g/dL NON-INTERFACED (ONBASE SCANS) Platelet Count (External) 193 140 - 440 k/ul NON-INTERFACED (ONBASE SCANS) Blood BLOOD SPECIMEN / Unknown 03/21/2024 8:09 AM CDT Narrative [facility] - 05/24/2024 1:38 PM CDT Verified by Charlotte Mack on 05/24/2024. Provider Outside LAB - BLOOD ORDERABLES Edited [facility] Performing Organization Address City/State/[facility] Co de Phone Number JUAN CARLOSE PFT NON-INTERFACED (ONBASE SCANS) * Phosphorus (03/21/2024 8:09 AM CDT) Phosphorus (External) 3.6 2.5 - 4.5 mg/dL NON-INTERFACED (ONBASE SCANS) Blood BLOOD SPECIMEN / Unknown 03/21/2024 8:09 AM CDT Narrative [facility] - 05/24/2024 1:38 PM CDT Verified by Charlotte Mack on 05/24/2024. us Provider Outside LAB - BLOOD ORDERABLES Edited R esult - Final [facility] PFT NON-INTERFACED (ONBASE SCANS) documented in this encounter Visit Diagnoses Not on filedocumented in this encounter Care Teams Cmm Programmer Relationship Specialty Start Date End Date Indio Bar MD [address] [place] [address] [address] [place] [phone] PCP - General 11/15/02 05/19/24 Joshua Peacock MD [facility] [address] [address] PCP - General Family Medicine 05/20/24 Maylin Springer DO [address] [place] [address] Physician Cardiovascular Disease 05/20/24 Maylin Springer DO [address] [place] [address] Assigned Heart and Vascular Provider 06/19/24 documented as of this encounter
--- OUTSIDE RECORDS SUMMARY | 2024-07-01 16:21 | XMS_ITS | Encounter Summary ---
Author Organization [facility] Address [address] [place] [address]. [place] [address] Care Team Providers Care It Infrastructure Specialist Name Role Phone Indio Bar MD Primary Care Provider [phone] Maylin Springer DO Unavailable [phone] Joshua Peacock MD Primary Care Provider [phone] Maylin Springer DO Unavailable [phone] Encounter Details Date Type Department Care Team (Late st Contact Info) Description 02/20/2024 External Order Results [facility] [address] [place] [address] Outside, Provider Social History Tobacco Use Types Packs/Day Years Used Date Smoking Tobacco: Never Alcohol Use Standard Drinks/Week Comments Yes 0 (1 standard drink = 0.6 oz pur e alcohol) one/night Sex and Gender Information Value Date Recorded Sex Assigned at Not on file Legal Sex Male 3:27 AM BANK PRESIDENT Gender Identity Not on file Sexual Orientation Not on file 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 Not on file Not on f ile documented as of this encounter Plan of Treatment Upcoming Encounters Date Type Department Care Team (Late st Contact Info) Description 07/16/2024 4:00 PM BANK PRESIDENT Appointment [facility] [address] [facility] [address] [place] [address] Maylin Springer DO [address] [facility] [address] [place] [address] documented as of this encounter Procedures Procedure Name Priority Date/Time Associated Diagnosis Comments ROUTINE UA WITH MICROSCOPIC Routine 02/20/2024 11:03 AM CDT ALBUMIN RANDOM URINE QUANTITATIVE Routine 02/20/2024 11:03 AM CDT PHOSPHORUS Routine 02/20/2024 11:01 AM CDT HEPATIC FUNCTION PANEL Routine 02/20/2024 11:01 AM CDT CYSTATIN C WITH GFR Routine 02/20/2024 1 1:01 AM CDT BASIC METABOLIC PANEL Routine 02/20/2024 11:01 AM CDT CBC WITH PLATELETS Routine 02/20/2024 11 :01 AM CDT documented in this encounter Results * (ABNORMAL) Albumin Random Urine Quantitative with Creat Ratio (02/20/2024 11:03 AM CDT) Creatinine Urine mg/dL (External) 22.8 mg/dl NON-INTERFA CE D (ONBASE SCANS) Microalbumin Urine (External) <1 mg/dl NON-INTERFA CE D (ONBASE SCANS) Microalbumin Urine mg/g Cr (External) 40(H) 0 - 30 mg/g NON-INTERFACE D (ONBASE SCANS) Urine 02/20/2024 11:0 3 AM CDT Narrative LANETTE PFT - 05/24/2024 1:56 PM CDT Verified by Charlotte Mack on 05/24/2024. us Provider Outside LAB - URINE ORDERABLES Edited R esult - Final LANETTE PFT NON-INTERFACED (ONBASE SCANS) * UA with Microscopic (02/20/2024 11:03 AM CDT) Color Urine (External) Yellow Yellow NON-INTERFAC ED (ONBASE SCANS) Appearance Urine (External) Clear Clear NON-INTERFAC ED (ONBASE SCANS) Glucose Urine (External) Negative Negative NON-INTERFAC ED (ONBASE SCANS) Bilirubin Urine (External) Negative Negative NON-INTERFAC ED (ONBASE SCANS) Ketones Urine (External) Negative Negative NON-INTERFAC ED (ONBASE SCANS) Specific [place] Urine (External) 1.015 1.000 - 1.030 NON-INTERFAC ED (ONBASE SCANS) Blood Urine (External) Negative negative NON-INTERFAC ED (ONBASE SCANS) pH Urine (External) 6.5 5.0 - 8.5 NON-INTERFAC ED (ONBASE SCANS) Protein Albumin Ur (External) Negative Negative NON-INTERFAC ED (ONBASE SCANS) Urobilinogen (External) 0.2 0.2 - 1.0 NON-INTERFAC ED (ONBASE SCANS) Nitrites Urine (External) Negative Negative NON-INTERFAC ED (ONBASE SCANS) Leukocyte Esterase Urine (External) Negative Negative NON-INTERFAC ED (ONBASE SCANS) Urine 02/20/2024 11:0 3 AM CDT Narrative LANETTE PFT - 05/24/2024 1:56 PM CDT Verified by Charlotte Mack on 05/24/2024. us Provider Outside LAB - URINE ORDERABLES Edited R esult - Final LANETTE PFT NON-INTERFACED (ONBASE SCANS) * CBC with platelets (02/20/2024 11:01 AM CDT) WBC Count (External) 5.46 4.50 - 11.00 K/uL NON-INTERFACED (ONBASE SCANS) RBC Count (External) 4.93 4.30 - 5.90 m/uL NON-INTERFACED (ONBASE SCANS) Hemoglobin (External) 14.4 13.5 - 17.5 g/dl NON-INTERFACED (ONBASE SCANS) Hematocrit (External) 42.6 37.0 - 53.0 % NON-INTERFACED (ONBASE SCANS) MCV (External) 86 80 - 100 fL NON-INTERFACED (ONBASE SCANS) MCH (External) 29 26 - 34 pg NON- INTERFACED (ONBASE SCANS) MCHC (External) 34 32 - 36 g/dl NON-INTERFACED (ONBASE SCANS) Platelet Count (External) 204 140 - 440 k/ul NON-INTERFACED (ONBASE SCANS) Blood BLOOD SPECIMEN / Unknown 02/20/2024 11:01 AM CDT Nadia GAMA PFT - 05/24/2024 1:56 PM CDT Verified by Charlotte Mack on 05/24/2024. us Provider Outside LAB - BLOOD ORDERABLES Edited R esult - Final LANETTE KANG NON-INTERFACED (ONBASE SCANS) * (ABNORMAL) Basic metabolic panel (02/20/2024 11:01 AM CDT) Sodium (External) 138 135 - 149 mmol/L NON-INTERFACED (ONBASE SCANS) Potassium (External) 5.0 3.6 - 5.1 mmol/L NON-INTERFACED (ONBASE SCANS) Chloride (External) 101 96 - 114 mmol/L NON-INTERFACED (ONBASE SCANS) CO2 (External) 30 20 - 32 mmol/L NON-INTERFACED (ONBASE SCANS) Anion Gap (External) 7 7 - 15 mEq/L NON-INTERFACED (ONBASE SCANS) Urea Nitrogen (External) 20 5 - 24 mg/dl NON-INTERFACED (ONBASE SCANS) Creatinine (External) 1.6(H) 0.5 - 1.5 mg/dl NON-INTERFACED (ONBASE SCANS) GFR Estimated (External) 53 ml/min NON-INTERFACED (ONBASE SCANS) Calcium (External) 10.1 8.4 - 10.6 mg/dl NON-INTERFACED (ONBASE SCANS) Glucose (External) 101 60 - 115 mg/dl NON-INTERFACED (ONBASE SCANS) Blood BLOOD SPECIMEN / Unknown 02/20/2024 11:01 AM CDT Narrative LANETTE PFT - 05/24/2024 1:56 PM CDT Verified by Charlotte Mack on 05/24/2024. Provider Outside LAB - BLOOD ORDERABLES Edited [email or web address] [facility] Performing Organization Address [facility]/State/ZIP Co de Phone Number BREEZE PFT NON-INTERFACED (ONBASE SCANS) * (ABNORMAL) Hepatic function panel (02/20/2024 11:01 AM CDT) AST (External) 56(H) 12 - 35 U/L NON-INTERFACED (ONBASE SCANS) Albumin (External) 5.0 3.3 - 5.0 g/dL NON-INTERFACED (ONBASE SCANS) ALT (External) 73(H) 4 - 50 U/L NON- INTERFACED (ONBASE SCANS) Blood BLOOD SPECIMEN / Unknown 02/20/2024 11:01 AM CDT Narrative BREEZE PFT - 05/24/2024 1:56 PM CDT Verified by Charlotte Mack on 05/24/2024. Provider Outside LAB - BLOOD ORDERABLES Edited [email or web address] Performing Organization Address [facility] Co de Phone Number BREEZE PFT NON-INTERFACED (ONBASE SCANS) * Phosphorus (02/20/2024 11:01 AM CDT) Pathologist [facility] Phosphorus (External) 3.8 2.5 - 4.5 mg/dL NON-INTERFACED (ONBASE SCANS) Blood BLOOD SPECIMEN / Unknown 02/20/2024 11:01 AM CDT Narrative BREEZE PFT - 05/24/2024 1:56 PM CDT Verified by Charoltte Mack on 05/24/2024. Provider Outside LAB - BLOOD ORDERABLES Edited [email or web address] [facility] BREEZE PFT NON-INTERFACED (ONBASE SCANS) * Cystatin C with GFR (02/20/2024 11:01 AM CDT) CYSTATIN C (External) 1.2 0.5 - 1.2 mg/L NON-INTERFACED (ONBASE SCANS) GFR Calculated with Cystatin C 64 >=60 ml/min/BSA NON-INTERFACED (ONBASE SCANS) Blood BLOOD SPECIMEN / Unknown 02/20/2024 11:01 AM CDT Narrative LANETTE PFT - 05/24/2024 1:56 PM CDT Verified by Charlotte Mack on 05/24/2024. us Provider Outside LAB - BLOOD ORDERABLES Edited R esult - Final LANETTE PFLedy NON-INTERFACED (ONBASE SCANS) documented in this encounter Visit Diagnoses Not on filedocumented in this encounter Care Teams It Infrastructure Specialist Relationship Specialty Start Date End Date Indio Bar MD [address] [place] [address] [address] [place] [address] PCP - General 11/15/02 05/19/24 Joshua Peacock MD [facility] [address] [address] PCP - General Family Medicine 05/20/24 Maylin Springer DO [address] [place] [address] Physician Cardiovascular Disease 05/20/24 Maylin Springer DO [address] [place] [address] Assigned Heart and Vascular Provider 06/19/24 documented as of this encounter
--- OUTSIDE RECORDS SUMMARY | 2024-07-01 16:21 | XMS_ITS | Data Portability ---
Author Organization [place] [facility] [place] [facility], [facility] Address [address] [place] [address] Care Team Providers Care Advertising Intern Name Role Phone KATHRYN MILLER Primary Care [...] area heals - f/u if not improving [email or web address] Not available 02/21/2024 13:03:18 Plan of Treatment Reminders Order Date Submit Date Provider Last Modified By Organization Details Last Modified Time Details Appointments None recorded. Lab None recorded. Referral None recorded. Procedures None recorded. Surgeries None recorded. Imaging XR, abdomen 024 024 [facility], [address] [facility], [address], [place], [address], 10:29:06 Medication Orders None recorded. Patient TargetsNo targets recorded. Patient InstructionsNo instructions recorded. Reason for Referral None Reported. Results Created Date Observation Date Name Description Value Unit Range Abnormal Flag Note LastModifiedBy Organization Detail LastModifiedTime 11/03/19 24 11/03/2023 CT, urogr am No observ ation record ed. [facility] [address] [place], [address], 11/06/2023 13:57:39 11/27/19 24 XR, abdom en No observ ation record ed. [address], [place], [address], 12/07/2023 14:44:44 Result Notes None recorded. 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 4 14:39:14 Obstruction of pelviureteric junction 57130031 Active 2023 Tiffany English PA-C [address] [place] [address],[address], [place], [address], [facility] 4 15:03:16 Problem Notes None recorded. Procedures Surgical History Date Name Laterality Status Provider Name and Address Organization Details Recorded Time 12/12/19 24 NEPHRECTOMY, HAND ASSISTED LAPAROSCOPIC (SURG) completed Yane Vargas [facility] 12/14/2023 11:06:43 08/28/19 22 Colonoscopy completed Ronny Sanchez MD [address] [place] [address],[address], [place], [address], [facility] 01/10/2024 12:32:45 Sinus Surgery completed Ronny Sanchez MD [address] [place] [address],[address], [place], [address], [facility] 11/22/2023 17:20:09 Imaging Results Imaging Date Name Status LastModified by Organiz ation Details LastModified Time 11/03/2023 CT, urogram completed [facility] [address] [facility] [place], [address], 11/06/2023 13:57:39 11/27/2023 XR, abdomen completed [place] [address] [facility] [address], [place], [address], 12/07/2023 14:44:44 Procedure Notes None recorded. Medical [...] Updated DateTime 11/22/2023 180.34 cm 22.3 kg/m2 63958.78 g Ronny Sanchez MD [address] [facility],[address], [place], [address], [place] [facility] 11/22/2023 17:18:01 Date Recorded Body height Body mass index (BMI) Body weight Provider Name and Address Organization Details Last Updated DateTime 01/10/2024 180.34 cm 22.3 kg/m2 02783.78 g Ronny Sanchez MD [address] [facility] [address], [place], [address] 01/10/2024 12:31:48 Date Recorded Body height Body mass index (BMI) Body weight Provider Name and Address Organization Details Last Updated DateTime 02/21/2024 180.34 cm 22.3 kg/m2 87904.78 g Rominabeverly Mendez [facility] 02/21/2024 12:28:51 Social History Question Answer Notes LastModified by Organizat ion Details LastModified Time Tobacco Smoking Status Never Smoker Ronny Sanchez MD [address] [place] [address],[facility] [address], [place], [address] 11/22/2023 17:19:54 What Is Your [...] Age of this Age Resolved Age Notes LastModified by Organization Details LastModified Time Father No current problems or disability [email or web address] Not available 11/21 17:19:38 Mother No current problems or disability [email or web address] Not available 11/21 17:19:39 Medical History Condition Response Diabetes N Sexually Transmitted Infection N Other N Bleeding Disorder N High Blood Pressure N Kidney Stones N Cancer N Lung Disease N Depression Y High Cholesterol Y GERD/Acid Reflux Y Heart Disease N Past Encounters Encounter ID Performer Location Encounter Start Date Encounter Closed Date Diagnosis/Indication Diagnosis SNOMED-CT Code Diagnosis ICD10 Code [id number] Ronny Sanchez MD [facility] [address] [facility] [address] [place] [address] 11/22/2023 17:00:15 12/13/2023 12:13:27 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 [place] [address] 02/21/2024 12:03:01 2024 15:26:18 Obstruction of pelviureteric junction 06644623 N13.5 Health Concerns Section Related Observation LastModified by Organization Detai ls LastModified Time None Recorded Concern Status LastModified by Organization Details LastModified Time None Recorded Advance Directives Directive None Recorded Payers Encounter Date Sequence Insurance Name Policy Number Policy Angelo Covered Member ID Angelo Member ID Guarantor Name 11/22/2023 1 [facility] [place] Moreira [id number] Dallas Moreira 01/10/2024 1 [facility] [place] Moreira [id number] Dallas Moreira 02/21/2024 1 [facility] Dallas Harish [id number] Dallas Moreira Notes Date Note Type Note Provider Name and Address Organization Details Recorded Time 11/22/2023 text/html HPI Notes: 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 He is tolerating the stent. He never remembers having renal colic. The current bout caused pain and emesis. Prior to that his creatinine had been rising. Ronny Sanchez MD [address] [place] [address],[address], [place], [address], 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 He did have a post op ileus managed at [facility]. This did not respond to Miralax. He's a month out from surgery and working out at the gym. Ronny Sanchez MD [address] [place] [address],[address], [place], [address], [facility] 01/10/2024 13:03:19 02/21/2024 text/html HPI Notes: [...] Denies fever or chills. Tiffany English PA-C [address] [place] [address],[address], [place], [address], [facility] 02/21/2024 13:03:41
--- OUTSIDE RECORDS SUMMARY | 2024-07-01 16:21 | XMS_ITS | Clinical Summary ---
Author Organization [facility] Address [place], [place] [address] Care Team Providers Care Medical Operations Supervisor Name Role Phone Clinic, No Pcp Or [...] e alcohol) Social Connections Answer Date Recorded Do you often feel lonely or isolated from those around you? 0 12/16/2023 Financial Resource Strain Answer Date R ecorded Difficulty of Paying Living Expenses 3 10/29/2023 Difficulty of Paying Living Expenses Not on file 10/29/2023 Food Insecurity Answer Date Recorded Do you worry your food will run out before you are able to buy more? 1 12/16/2023 Transportation Needs Answer Date Record ed Does lack of transportation keep you from medica l appointments? 1 12/16/2023 Does lack of transportation keep you from work, meetings or getting things that you need? 1 12/16/2023 Housing Stability Answer Date Recorded What is your housing situation today? 1 12/16/2023 Sex and Gender Information Value Date Recorded [...] 75 02/23/2020 Lipids for age 45-75 02/23/2020 COVID-19 vaccine series (2023- season) 2024 08/23/2023, 08/13/2022, 08/22/2021, Additional history exists Influenza for age 9-49 04/28/2024 , 07/05/2022, 07/08/2021, Additional history exists Tetanus booster 06/17/2024 06/17/2014 Tdap Completed 06/17/2014 Pneumococcal series for age 6-64 Aged Out No longer eligible based on patient's age to complete this topic Medical Devices Implanted Type Area Braid Cutter Device Identifier Shelf Expiration Date Model / Serial / Lot Stent Uret [id number] Contour - [id number] Implanted:Qty: 1 on 10/30/2023 by Zurdo Ascencio MD at [facility] Left: Ureter BS Urology 12/01/2023 [id number] Description:See implant shee t Advance Directives * [...] Code Status Discussion: Reviewed Preferences Care Teams Medical Operations Supervisor Relationship Specialty Start Date End Date Clinic, No Pcp Or . PCP - General 11/02/23
--- OUTSIDE RECORDS SUMMARY | 2024-07-01 16:21 | XMS_ITS ---
Author Organization [facility] Address [address] [place] [address] Care Team Providers Care Cork Floor Installer Name Role Phone Unavailable Unavailable Unavailable Surgery Details Not on file Complications Check Surgery Details section. Procedure Estimated Blood Loss Check Surgery Details section. Procedure Findings Check Surgery Details section. Procedure Specimens Taken Check Surgery Details section.
--- OUTSIDE RECORDS SUMMARY | 2024-07-01 16:21 | XMS_ITS | Referral Summary ---
Author Organization [facility] Address [address] [place] [address] Care Team Providers Care Pattern Worker Name Role Phone Unavailable Primary Care Provider Unavailabl e Source Comments Patient records contain information from all sites at [facility]. For routine questions regarding patient records, call [phone] during business hours, M-F 8:00 AM - 5:00 PM Central Time. 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
--- OUTSIDE RECORDS SUMMARY | 2024-07-01 16:21 | XMS_ITS | Clinical Summary ---
Author Organization [facility] Address [address] [place] [address] Care Team Providers Care Black Top Machine Operator Name Role Phone Unavailable Primary Care Provider Unavailabl e Source Comments Patient records contain information from all sites at [facility]. For routine questions regarding patient records, call [phone] during business hours, M-F 8:00 AM - 5:00 PM Central Time. 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 Gender Identity Not on file Sexual Orientation Not on file Plan of Treatment Health Maintenance Due Date Last Done Comments CT Colonography 1975 Cologuard 1975 Colonoscopy 1975 Colorectal Cancer Screening 1975 FIT 1975 HIV Screening 1975 Hepatitis C Screening 1975 Lipid (Cholesterol) Screening 1975 Hepatitis B Vaccines (1 of 3 - 19+ 3-dose series) 1994 Depression Screening (Annual PHQ-2) 08/28/2023 COVID-19 Vaccine (2023- season) 2024 08/23/2023, 08/13/2022, 08/22/2021, Additional history exists Influenza Vaccine (#1) 2024 , 07/05/2022, 07/08/2021, Additional history exists DTaP,Tdap,and Td Vaccines (2 - Td or Tdap) 06/17/2024 06/17/2014 Fasting Glucose for Diabetes Screening 12/14/2026 12/15/2023, 12/13/2023, 10/30/2023 IPV Vaccines Aged Out No longer eligi ble based on patient's age to complete this topic Pneumococcal vaccine (0-64 years) Aged Out No longer eligible based on patient's age to complete this topic [facility]
--- OUTSIDE RECORDS SUMMARY | 2024-07-01 16:21 | XMS_ITS | Encounter Summary ---
Author Organization [facility] Address [address] [place] [address]. [place] [address] Care Team Providers Care Space Physicist Name Role Phone Maylin Springer DO Unavailable [phone] Joshua Peacock MD Primary Care Provider [phone] Reason for Referral * Diagnostic Imaging CT Scan (Routine) - Authorized Specialty Diagnoses / Procedures Referred By Contac t Referred To Contact Radiology. Diagnoses Screening for cardiovascular condition Stage 3 chronic kidney disease, unspecified whether stage 3a or 3b CKD (H) Hyperlipidemia LDL goal <[address] Coronary Calcium Scan Maylin Springer DO [address] [place] [address] Phone: tel: fax: Referral ID Status Reason Start Date Expiration Date V isits Requested Visits Authorized [id number] Authorized 05/30/2024 05/30/2025 1 1 Reason for Visit * Reason Comments Heart Problem Family history Encounter Details Date Type Department Care Team (Late st Contact Info) Description 05/30/2024 4:15 PM CDT Office Visit [facility] [address] [place] [address] Maylin Springer DO [address] [place], [place] [id number] Screening for cardiovascular condition (Primary Dx); Stage 3 chronic kidney disease, unspecified whether stage 3a or 3b CKD (H); Hyperlipidemia LDL goal <100 Social History Tobacco Use Types Packs/Day Years [...] on file 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 Gender Identity Not on file Sexual Orientation Not on file 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 Not on file Not on file Not on f ile documented as of this encounter Last Filed Vital Signs Vital Sign Reading Time Taken Comments Blood Pressure 116/84 05/30/2024 4:14 PM CDT Pulse 66 05/30/2024 4:14 PM CDT Temperature - - Respiratory Rate - - Oxygen Saturation - - Inhaled Oxygen Concentration - - Weight 78 kg (172 lb) 05/30/2024 4:14 PM CDT Height 180.3 cm (5' 11) 05/30/2024 4:14 PM CDT Body Mass Index 23.99 05/30/2024 4:14 PM CDT documented in this encounter Progress Notes * Maylin Springer, - 05/30/2024 4:15 PM CDT HPI and Plan: Dallas Moreira is a 49 year old male who presents with history of hydronephrosis requiring a leftnephrectomy, hyperlipidemia and family history of heart disease. He is here for primary prevention.He occasionally gets lightheaded but otherwise feels healthy and denies any chest pain, shortness of breath or palpitations. He has been on rosuvastatin for hyperlipidemia but recently had a decreasein dose from 10 to 5 mg because of elevated liver function test. He is scheduled to see his PMD in July to follow-up with repeat liver function test. He has evidence of renal insufficiency post ne phrectomy with a creatinine of 1.5 in February and a GFR of 57.. We did perform an electrocardiogram in office today which I have reviewed and demonstrates a normalsinus rhythm with an RSR pattern in V1 and V2 with convex ST segment elevation. This has a subtle appearance of Brugada pattern. He did have an ECG done prior to his ureteral stent before he ended upwith nephrectomy. ECG was done at [facility] in October of this year, I am able to pull up the computer result but not the actual image. The computer result suggests a normal sinus rhythm it doesnot mention an RSR pattern. Exam today is normal Summary 1. Primary prevention for future cardiovascular events-risk factors include hyperlipidemia and extended family history so not premature coronary disease and chronic kidney disease related to hydronephrosis and post nephrectomy. I have recommended CT calcium score for improved prognostic data regarding risks for future cardiovascular disease. I explained this test and likely that he may have to pay [id number] and he is agreeable to proceed we will schedule this today. 2. Abnormal ECG. Findings are very subtle and this may be just a normal variant but out of abundance of precaution I have asked him to find/locate his previous ECG for comparison. He does complain ofintermittent lightheadedness, it might be worthwhile to perform a heart monitor to look for arrhythmias if there is evidence of transient ST elevation in V1 and V2. There are no indicators for high risk such as sudden cardiac in the family or syncopal events which are reassuring. Please feel free to contact me with any questions given regards to his care Today's clinic visit entailed: Review of external notes as documented elsewhere in note Review of the result(s) of each unique test - LFTs. BMP, ECG Ordering of each unique test Provider Link to [facility] Help Grid The level of medical decision making during this visit was of moderate complexity. Orders Placed This Encounter Procedures EKG 12-lead complete w/read - Clinics (performed today) Orders Placed This Encounter Medications rosuvastatin (CRESTOR) 5 MG tablet Sig: Take 5 mg by mouth daily. escitalopram (LEXAPRO) 10 MG tablet Sig: Take 10 mg by mouth daily. famotidine (PEPCID) 20 MG tablet Sig: Take 20 mg by mouth daily. There are no discontinued medications. Encounter Diagnoses Name Primary? Screening for cardiovascular condition Yes Stage 3 chronic kidney disease, unspecified whether stage 3a or 3b CKD (H) Hyperlipidemia LDL goal <100 CURRENT MEDICATIONS: Current Outpatient Medications Medication Sig Dispense Refill escitalopram (LEXAPRO) 10 MG tablet Take 10 mg by mouth daily. famotidine (PEPCID) 20 MG tablet Take 20 mg by mouth daily. rosuvastatin (CRESTOR) 5 MG tablet Take 5 mg by mouth daily. VALTREX 500 MG OR TABS 1 PO BID X 5 DAYS (Patient taking differently: as needed.) 10 11 DUAC 1-5 % EX GEL apply daily for acne (Patient not taking: Reported on 05/30/2024) 1 0 FLUTICASONE PROPIONATE (NASAL) 50 MCG/ACT NA SUSP 1 spray in each nostil daily (Patient not taking:Reported on 05/30/2024) 1 mdi 11 KETOCONAZOLE 200 MG OR TABS 1 TABLET WEEKLY (Patient not taking: Reported on 05/30/2024) 14 0 PROTONIX 40 MG OR TBEC 1 TABLET DAILY (Patient not taking: Reported on 05/30/2024) 30 11 TAZORAC 0.1 % EX CREA apply daily for acne (Patient not taking: Reported on 05/30/2024) 1 0 ALLERGIES Allergies Allergen Reactions No Known Drug Allergy PAST MEDICAL HISTORY: Past Medical History: Diagnosis Date Esophageal reflux HERPES SIMPLEX cold sores Other acne PAST SURGICAL HISTORY: Past Surgical History: Procedure Laterality Date VASECTOMY FAMILY HISTORY: Family History Problem Relation Age of Onset Family History Negative Mother alive age 58 Family History Negative Father alive age 59 Family History Negative Brother alive age 29 Cardiovascular Father hyperlipidemia SOCIAL HISTORY: Social History Socioeconomic History Marital status: Spouse name: None Number of children: 3 Years of education: None Highest education level: None Occupational History Occupation: education and development manager Employer: [employer] Tobacco Use Smoking status: Never Smokeless tobacco: Never Substance and Sexual Activity Alcohol use: Yes Comment: 1-2 per day Sexual activity: Yes Partners: Female control/protection: Surgical Social Determinants of Health Financial Resource Strain: Low Risk (10/29/2023) Received from [facility] Count Includes [facility], [facility] Financial Resource Strain Difficulty of Paying Living Expenses: 3 Food Insecurity: No Food Insecurity (10/29/2023) Received from [facility] Count Includes [facility], [facility] [facility] Food Insecurity Worried About Running Out of Food in the Last Year: 1 Transportation Needs: No Transportation Needs (10/29/2023) Received from [facility] Count Includes [facility], [employer] [facility] Transportation Needs Lack of Transportation (Medical): 1 Social Connections: Socially Integrated (10/29/2023) Received from [facility] [employer] [facility], [facility] [place] Social Connections Frequency of Communication with Friends and Family: 0 Housing Stability: Low Risk (12/12/2023) Received from [facility] [employer] [facility] Housing Stability Unable to Pay for Housing in the Last Year: 1 Recent Concern: Housing Stability - High Risk (10/29/2023) Received from [facility] [employer] [facility] Housing Stability Unable to Pay for Housing in the Last Year: 3 Review of Systems: Skin: not assessed Eyes: not assessed ENT: not assessed Respiratory: Negative Cardiovascular: lightheadedness;Positive for Gastroenterology: not assessed Genitourinary: not assessed Musculoskeletal: not assessed Neurologic: not assessed Psychiatric: not assessed Heme/Lymph/Imm: not assessed Endocrine: not assessed Physical Exam: Vitals: BP 116/84 (BP Location: Right arm, Patient Position: Sitting, Cuff Size: Adult Regular) Pulse 66 Ht 1.803 m (5' 11) Wt 78 kg (172 lb) BMI 23.99 kg/m?? Constitutional: cooperative;in no acute distress Skin: warm and dry to the touch Head: normocephalic Eyes: pupils equal and round Lymph: ENT: no pallor or cyanosis Neck: no carotid bruit Respiratory: clear to auscultation;normal symmetry Cardiac: regular rhythm;no murmurs, gallops or rubs detected pulses full and equal GI: abdomen soft Extremities and Muscular Skeletal: no deformities, clubbing, cyanosis, erythema observed;no edema Neurological: no gross motor deficits;affect appropriate Psych: Alert and Oriented x 3 Recent Lab Results: LIPID RESULTS: Lab Results Component Value Date CHOL 157 10/03/2007 HDL 33 (L) 10/03/2007 LDL 98 10/03/2007 TRIG 131 10/03/2007 CHOLHDLRATIO 4.7 10/03/2007 LIVER ENZYME RESULTS: Lab Results Component Value Date AST 29 10/03/2007 ALT 23 10/03/2007 CBC RESULTS: No results found for: WBC, RBC, HGB, HCT, MCV, MCH, MCHC, RDW, PLT BMP RESULTS: Lab Results Component Value Date NA 138 10/03/2007 POTASSIUM 3.9 10/03/2007 CHLORIDE 108 03/21/2024 CHLORIDE 101 10/03/2007 CO2 30 10/03/2007 ANIONGAP 7 10/03/2007 GLC 92 10/03/2007 BUN 11 10/03/2007 CR 1.04 10/03/2007 GFRESTIMATED 88 10/03/2007 GFRESTBLACK >90 10/03/2007 ORALIA 9.8 10/03/2007 A1C RESULTS: No results found for: A1C INR RESULTS: No results found for: INR CC Referred MD Jerson No address on file documented in this encounter Plan of Treatment Upcoming Encounters Date Type Department Care Team (Late st Contact Info) Description 07/16/2024 4:00 PM RECOVERY ANALYST Appointment [facility] [address] [facility] [address] [place] [id number] Maylin Springer DO [address] [facility] [address] [place] [address] Scheduled Orders Name Type Priority Associated Diagnoses Orde r Schedule CT Coronary Calcium Scan Cardiac CT Routine Screening for cardiovascular condition Stage 3 chronic kidney disease, unspecified whether stage 3a or 3b CKD (H) Hyperlipidemia LDL goal <100 Expected: 05/30/2024 (Approximate), Expires: 05/30/2025 documented as of this encounter Procedures Procedure Name Priority Date/Time Associated Diagnosis Comments EKG 12-LEAD COMPLETE W/READ - CLINICS Routine 05/30/2024 Screening for cardiovascular condition documented in this encounter Results * EKG 12-lead complete w/read - Clinics (performed today) (05/30/2024) Maylin Springer DO ECG ORDERABLES Fin al Result documented in this encounter Visit Diagnoses Diagnosis Screening for cardiovascular condition- Primary Screening for other and unspecified cardiovascular conditions Stage 3 chronic kidney disease, unspecified whether stage 3a or 3b CKD (H) Hyperlipidemia LDL goal <100 Other and unspecified hyperlipidemia documented in this encounter Care Teams Space Physicist Relationship Specialty Start Date End Date Joshua Peacock MD [facility] [address] [place] [address] PCP - General Family Medicine 05/20/24 Maylin Springer DO [address] [place] [address] Physician Cardiovascular Disease 05/20/24 documented as of this encounter
== END 2024-06-28 08:22 | disposition home or self-care (01) ==
LOC: NFLDREF 07-01 16:19
PROVIDERS: PCP Family Medicine; Referring Provider Family Medicine; Visit Provider Family Medicine
DX: R79.89 Other specified abnormal findings of blood chemistry (principal); E78.00 Pure hypercholesterolemia, unspecified; Z90.5 Acquired absence of kidney
CPT/HCPCS: 80048; 80061; 80076

== ENCOUNTER 2024-08-09 07:29 | Outpatient (CLI) | payer OTHER, SELFPAY | END 2024-08-09 07:30 | disposition home or self-care (01) | LOC: NFLDREF 11:33 | PROVIDERS: PCP Family Medicine; Referring Provider Family Medicine; Visit Provider Internal Medicine Nephrology | DX: R79.89 Other specified abnormal findings of blood chemistry (principal); N18.9 Chronic kidney disease, unspecified; N28.1 Cyst of kidney, acquired | CPT/HCPCS: 80069; 82043; 82565; 82570; 82610; 84450; 84460 ==

== ENCOUNTER 2024-08-09 07:56 | Outpatient (CLI) | payer OTHER, SELFPAY ==
--- NOTE | 2024-08-09 08:15 | CRLHL7_ITS ---
For Patients: As a result of the Century Cures Act, medical imaging exams and procedure reports are released immediately into your electronic medical record. You may view this report before your referring provider. If you have questions, please contact your health care provider. CLINICAL HISTORY: Right renal lesion COMPARISON: CT 10/29/2023, ultrasound 03/29/2024 TECHNIQUE: Iqbal scale and color Doppler images were acquired of the right kidney and urinary bladder. FINDINGS: Cystic mass within the right kidney is again noted measuring 5.1 x 3.8 x 4.0 cm, previously measuring 5.1 x 3.6 x 5.0 cm. Numerous septa are present which measure less than 2 millimeters. Color Doppler flow noted within the septa. The right kidney measures 13.3 cm in length. Renal cortex measures 1.5 cm. The left kidney is absent. No hydronephrosis. No stone. The bladder is normal with normal right ureteral jet. Bladder prevoid volume 244 cc. Bladder postvoid volume 20 cc. 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 The large majority of Bosniak IIF masses are benign. When malignant, nearly all are indolent. Generally, Bosniak IIF masses are followed at imaging at 6 months and 12 months, then annually for a total of 5 years to assess for morphologic change Dictated by Devang Napier MD @ 08/09/2024 10:03:52 AM (Electronically Signed)
== END 2024-08-09 07:57 | disposition home or self-care (01) ==
LOC: US 07:56
PROVIDERS: PCP Family Medicine; Visit Provider Internal Medicine Nephrology
DX: N28.9 Disorder of kidney and ureter, unspecified (principal); N28.1 Cyst of kidney, acquired; N18.9 Chronic kidney disease, unspecified
CPT/HCPCS: 76770; 80069; 82043; 82565; 82570; 82610; 84450; 84460

== ENCOUNTER 2024-10-24 09:20 | Outpatient (CLI) | payer OTHER, SELFPAY | END 2024-10-24 09:21 | disposition home or self-care (01) | LOC: NFLDREF 10-25 14:34 | PROVIDERS: PCP Family Medicine; Referring Provider Family Medicine; Visit Provider Family Medicine | DX: R79.89 Other specified abnormal findings of blood chemistry (principal); E78.00 Pure hypercholesterolemia, unspecified | CPT/HCPCS: 80061; 80076; 86803; 87340 ==

== ENCOUNTER 2025-02-14 08:04 | Outpatient (CLI) | payer OTHER, SELFPAY | END 2025-02-14 08:05 | disposition home or self-care (01) | LOC: NFLDREF 02-19 00:45 | PROVIDERS: PCP Family Medicine; Referring Provider Family Medicine; Visit Provider Family Medicine | DX: E78.00 Pure hypercholesterolemia, unspecified (principal); N28.1 Cyst of kidney, acquired; R79.89 Other specified abnormal findings of blood chemistry; N18.9 Chronic kidney disease, unspecified; Z13.1 Encounter for screening for diabetes mellitus | CPT/HCPCS: 80053; 80061; 82565; 82610 ==

== ENCOUNTER 2025-02-14 09:05 | Outpatient (CLI) | payer OTHER, SELFPAY ==
--- OUTSIDE RECORDS SUMMARY | 2024-09-12 08:12 | XMS_ITS | Continuity of Care Document ---
Author Organization [facility] Address [address] [address] [place] [address] Phone Care Team Providers Care Bindery Machine Feeder Offbearer Name Role Phone No Information Unavailable Unavailable Advance Directives Directive Yes / No Effective Date File Name No Information Encounters Encounter Description Practice Location Reason(s) For Visit Diagnoses Date Provider Providers Copied on Encounter [facility], [address] [address], [place], [place], [id number], tel:[phone] No Information No Information Referring Provider: Joshua Peacock MD, [address] [place], [address]. tel:[phone] Family History Family Member Type Diagnosis Age At Onset No Information Payers Payer name Insurance type Covered libertarian ID Authoriza tion(s) No Information Social History Type Description Quantity Date Captured Comments Sex Male Smoking Status No Information Chief Complaint And Reason For Visit No Information Reason For Referral Reason For Referral No Information History Of Present Illness Encounter Date Complaint History Of Prese nt Illness No Information Functional Status Date Functional Assessmen t No Information Instructions Date Instruction Additional Infor mation No Information Assessments Type Assessment Date No Information Patient Care Teams Name Effective Dates (start - stop) Status Members No Information
--- OUTSIDE RECORDS SUMMARY | 2024-11-11 04:23 | XMS_ITS | Continuity of Care Document ---
Author Organization [facility] Address [address] [address] [place] [address] Phone Care Team Providers Care Pharmaceutical Physician Name Role Phone Helen Gilbert MD Unavailable Unavailable Allergies, Adverse Reactions, Alerts Substance Reaction Status Criticality No Known Allergies Active No Inform ation Medications Medication Instructions Dosage Effective Dates (start - stop) Status Comments Lexapro 10 mg tablet take 1 tablet by or al route every day 10 MG - Active rosuvastatin 5 mg tablet take 1 tablet by oral route every day 5 MG - Active Procedures Procedure Date Established Level 3 FibroScan Offic/outpt E&m New Mod-hi Routine Serum Collection Advance Directives Directive Yes / No Effective Date File Name No Information Encounters Encounter Description Practice Location Reason(s) For Visit Diagnoses Date Provider Providers Copied on Encounter Established Level 3 [facility], [address] [address], [place], [place], [id number], [place] tel:[phone] [facility] GI Symptoms or Concerns (chief complaint) Abnormal LFTs Vladimir Cervantes. [address] [facility], [facility] [address], [place], [place], [id number], [place]. tel:[phone] Referring Provider: Referral Self, USE FOR SELF REFERRALS. [facility], [address] [address], [place], [place], [address], [place] tel:[phone] [facility] Other specified abnormal findings of blood chemistry Vladimir Cervantes. [address] [facility], [address], [place], [place], [id number], [place]. tel:[phone] Referring Provider: Referral Self, USE FOR SELF REFERRALS. [facility], [address] [address], [place], [place], [id number], [place] tel:[phone] [facility] No Information Vladimir Cervantes. [address] [facility], [address], [place], [place], [id number], [place]. tel:[phone] Offic/outpt E&m New Mod-hi [facility], [address] [address], [place], [place], [id number], [place] tel:[phone] [facility] GI Symptoms or Concerns (chief complaint) Elevated LFTs Vladimir Cervantes. [address] [facility], [facility] [address], [place], [place], [address], [place]. tel:[phone] Referring Provider: Joshua Peacock MD, [address] [place] [address], [address]. tel:[phone] Family History Family Member Type Diagnosis Age At Onset No Information Immunizations Vaccine Date Status Comments SARS-COV-2 (COVID-19) vaccin e, mRNA, spike protein, LNP, preservative free, 50 mcg/0.5 mL dose administered Note: [facility] bi-direct ional interface ; Source: Other Registry Afluria Qd administered Note: II bi-directional interface ; Source: Other Registry SARS-COV-2 (COVID-19) vaccin e, mRNA, spike protein, LNP, bivalent, preservative free, 30 mcg/0.3 mL dose, samira-sucrose formulation administered Note: [facility] bi-direct ional interface ; Source: Other Registry Influenza, Madin Eli Canin e Kidney, subunit, quadrivalent, injectable, preservative free administered Note: [facility] bi-directional interface ; Source: Other Registry SARS-COV-2 (COVID-19) vaccin e, mRNA, spike protein, LNP, preservative free, 100 mcg/0.5mL dose or 50 mcg/0.25mL dose administered Note: [facility] bi -directional interface ; Source: Other Registry Afluria Qd administered Note: M [facility] bi-directional interface ; Source: Other Registry SARS-COV-2 (COVID-19) vaccin e, mRNA, spike protein, LNP, preservative free, 100 mcg/0.5mL dose or 50 mcg/0.25mL dose administered Note: [facility] bi -directional interface ; Source: Other Registry SARS-COV-2 (COVID-19) vaccin e, mRNA, spike protein, LNP, preservative free, 100 mcg/0.5mL dose or 50 mcg/0.25mL dose administered Note: [facility] bi -directional interface ; Source: Other Registry Afluria Qd administered Note: M [facility] bi-directional interface ; Source: Other Registry tetanus toxoid, reduced diphtheria toxoid, and acellular pertussis vaccine, adsorbed administered Note: [facility] b i-directional interface ; Source: Other Registry Novel [id number], all formulations administered Note: [facility] bi-direct ional interface ; Source: Other Registry influenza virus vaccine, unspecified formulation administered Note: [facility] bi-di rectional interface ; Source: Other Registry Influenza, live, trivalent, intranasal administered Note: [facility] bi-direct ional interface ; Source: Other Registry Havrix administered Note: [facility] bi-d irectional interface ; Source: Other Registry Payers Payer name Insurance type Covered libertarian ID Mallory winters(s) On license of [facility] [id number] Social History Type Description Quantity Date Captured Comments Alcohol Use Details Unknown Caffeine Use Details Unknown Tobacco Use Status No Information Smoking Status undefined Sex Male Vital Signs Date / Time: Height Weight BMI Pulse Rate Blood Pressure Temperature Respiratory Rate Body Surface Area Head Circumference Head Circ. Percentile Wt./Shilo. Percentile BMI percentile Pulse Ox Inhaled Ox 9:24 AM 71.00 in 77.111 kg (170.00 lbs) 23.7 1 kg/m jorge (2) Chief Complaint And Reason For Visit From encounter dated '11/11/2024 09:23'. GI Symptoms or Concerns (chief complaint). Description: This is a 49-year-old male patient presentsto ri today in liver clinic for a virtual video visit. He consents to do the visit virtually. He was last seen in our clinic just under 3 months ago for abnormal LFTs and at the time thought was thismay be related to his statin. 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 He decreased the rosuvastatin dose to5 mg. He denied any family history of liver disease or prior history of liver disease. Workup was negative except for positive hep A antibody showing immunity to hepatitis A. FibroScan revealed a lowfibrosis score of 4.0 kPa and a low fat score of 221 dB/m. Repeat LFTs showed significant improvement as ALT is down to 36 from 96 and AST is down to 35 from 53. Patient denies any symptoms. Reason For Referral Reason For Referral No Information Plan Of Treatment Date Type Action Status Referral Ordered: FibroScan With CAP Appointment date/timeframe: 09/06/2024 ordered History Of Present Illness Encounter Date Complaint History Of Prese nt Illness GI Symptoms or Concerns This is a 49-year-old male patient presents to me today in liver clinic for a virtual video visit. He consents to do the visit virtually. He was last seen in our clinic just under 3 months ago for abnormal LFTs and at the time thought was this may be related to his statin. 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 He decreased the rosuvastatin dose to 5 mg. He denied any family history of liver disease or prior history of liver disease. Workup was negative except for positive hep A antibody showing immunity to hepatitis A. FibroScan revealed a low fibrosis score of 4.0 kPa and a low fat score of 221 dB/m. Repeat LFTs showed significant improvement as ALT is down to 36 from 96 and AST is down to 35 from 53. Patient denies any symptoms. GI Symptoms or Concerns This is a 49-year-old male referred here today in consultation by Dr. Joshua Peacock regarding abnormal LFTs. Beginning early 2023, patient has had a slow creep up in his LFTs. Most recently, AST of 53, ALT of 96 which is the highest they have been. He has history of nephrectomy secondary to UPJ obstruction, but is otherwise healthy takes Lexapro and rosuvastatin. He notes that he started rosuvastatin 10 mg a month before first elevation of liver enzymes, went down to 5 mg several months ago and has continued to have rise in his LFTs. He drinks 1-2 beers a week on weekends. He denies any supplements. No IV drug use. No tattoos.FHx: No family history of GI diseases or malignanciesHe denies any jaundice, icterus, abdominal pain, lower extremity edema, confusion. Functional Status Date Functional Assessmen t No Information Instructions Date Instruction Additional Infor derek 1. Monitor LFTs ever y 6-months by primary care provider2. Vaccinate for hepatitis B3. Follow-up as needed Related to Abnormal LFTs - labs today to look for cause of elevated liver numbers- schedule fibroscan to look for fat/scarring in liver- follow up in 3 months to discuss how liver numbers are doingcall sooner with questions or concerns Related to Elevated LFTs Assessments Type Assessment Date assessment Abnormal LFTs impression This is a 49-year-ol d male patient presenting today for virtual video visit in liver clinic. He consents to do the visit virtually. He is here to follow-up on abnormal LFTs. We had decreased his rosuvastatin dose in half and his LFTs have normalized. Workup has been completely negative with normal FibroScan, and blood work that is unrevealing. He is immune to hepatitis A and will need vaccination to hepatitis B and will get that his primary care. He had some questions regarding future scenarios in case he needs to go up on the statin or needs to switch medications. I answered all his questions for him. He does not need to follow-up unless his LFTs worsen again. Patient Care Teams Name Effective Dates (start - stop) Status Members No Information
--- NOTE | 2025-02-14 09:15 | CRLHL7_ITS ---
For Patients: As a result of the Century Cures Act, medical imaging exams and procedure reports are released immediately into your electronic medical record. You may view this report before your referring provider. If you have questions, please contact your health care provider. CLINICAL HISTORY: Bosniak 2 F cyst COMPARISON: 08/09/2024 TECHNIQUE: Iqbal scale and color Doppler images were acquired of the right kidney and urinary bladder. FINDINGS: Complex cystic mass right kidney with internal septations measures 5.3 x 4.5 x 4.7 cm, previously measuring 5.1 x 3.8 x 4.0 cm. No hydronephrosis. Septated cyst right kidney measures 1.3 x 1.0 x 1.3 cm. The right kidney measures 13.9cm in length. The renal cortex appears of normal thickness. Bladder measures 282 cc prevoid and 32 cc postvoid. Normal right ureteral jet. IMPRESSION: Stable complex right renal cyst. Dictated by Devnag Napier MD @ 02/14/2025 10:08:15 AM (Electronically Signed)
--- OUTSIDE RECORDS SUMMARY | 2025-02-15 00:58 | XMS_ITS | Encounter Summary ---
Author Organization [facility] Address [address] [place] [address]. [place] [address] Care Team Providers Care Steel Die Engraver Name Role Phone Indio Bar MD Primary Care Provider [phone] Maylin Springer DO Unavailable [phone] Joshua Peacock MD Primary Care Provider [phone] Maylin Springer DO Unavailable [phone] Encounter Details Date Type Department Care Team (Late st Contact Info) Description 02/20/2024 External Order Results [facility] [address] [place] [address] Outside, Provider Social History Tobacco Use Types Packs/Day Years Used Date Smoking Tobacco: Never Alcohol Use Standard Drinks/Week Comments Yes 0 (1 standard drink = 0.6 oz pur e alcohol) one/night Sex and Gender Information Value Date Recorded Sex Assigned at Not on file Legal Sex Male 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 Gender Identity Not on file Sexual Orientation Not on file 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 Not on file Not on file Not on f ile documented as of this encounter Plan of Treatment Not on file documented as of this encounter Procedures Procedure [...] URINE ORDERABLES Edited R esult - Final JUAN CARLOSMegan PFT NON-INTERFACED (ONBASE SCANS) * UA with Microscopic (02/20/2024 11:03 AM CDT) Color Urine (External) Yellow Yellow NON-INTERFAC ED (ONBASE SCANS) Appearance Urine (External) Clear Clear NON-INTERFAC ED (ONBASE SCANS) Glucose Urine (External) Negative Negative NON-INTERFAC ED (ONBASE SCANS) Bilirubin Urine (External) Negative Negative NON-INTERFAC ED (ONBASE SCANS) Ketones Urine (External) Negative Negative NON-INTERFAC ED (ONBASE SCANS) Specific [place] Urine (External) 1.015 1.000 - 1.030 NON-INTERFAC [...] Urine 02/20/2024 11:0 3 AM CDT Narrative BREEZE PFT - 05/24/2024 1:56 PM CDT Verified by Charlotte Mack on 05/24/2024. us Provider Outside LAB - URINE ORDERABLES Edited R esult - Final JUAN CARLOSMegan PFT NON-INTERFACED (ONBASE SCANS) * CBC with [...] Outside LAB - BLOOD ORDERABLES Edited R [email or web address] - [facility] Performing Organization Address [facility] de Phone Number LANETTE PFT NON-INTERFACED (ONBASE SCANS) * (ABNORMAL) Basic metabolic [...] Provider Outside LAB - BLOOD ORDERABLES Edited [email or web address] [facility] Performing Organization Address [facility] Co de Phone Number LANETTE PFT NON-INTERFACED (ONBASE SCANS) * (ABNORMAL) Hepatic [...] Outside LAB - BLOOD ORDERABLES Edited R [employer] CHELAEZE PFT NON-INTERFACED (ONBASE SCANS) * Phosphorus (02/20/2024 11:01 AM CDT) Phosphorus (External) 3.8 2.5 - 4.5 mg/dL NON-INTERFACED (ONBASE SCANS) Blood BLOOD SPECIMEN / Unknown 02/20/2024 11:01 AM CDT Narrative BREEZE PFT - 05/24/2024 1:56 PM CDT Verified by Charlotte Mack on 05/24/2024. Provider Outside LAB - BLOOD ORDERABLES Edited [employer] CHELAEZE PFT NON-INTERFACED (ONBASE SCANS) * Cystatin C [...] BLOOD ORDERABLES Edited R esult - Final BREEZE PFT NON-INTERFACED (ONBASE SCANS) documented in this encounter Visit Diagnoses Not on filedocumented in this encounter Care Teams Steel Die Engraver Relationship Specialty Start Date End Date Indio Bar MD [address] [place] [address] PCP - General 11/15/02 05/19/24 Joshua Peacock MD [address] [place] [address] PCP - General Family Medicine 05/20/24 Maylin Springer DO [address] [place] [address] Physician Cardiovascular Disease 05/20/24 Maylin Springer DO [address] [place] [address] Assigned Heart and Vascular Provider 06/19/24 documented as of this encounter
--- OUTSIDE RECORDS SUMMARY | 2025-02-15 00:58 | XMS_ITS | Encounter Summary ---
Author Organization [facility] Address [address] [place] [address]. [place] [address] Care Team Providers Care Spray Blender Name Role Phone Racheal Maylin Mary Anne DO Unavailable [phone] Joshua Peacock MD Primary Care Provider [phone] Maylin Springer DO Unavailable [phone] Encounter Details Date Type Department Care Team (Late st Contact Info) Description 07/18/2024 [facility] [address] [place] [address] Kylah Hartman, RN Social History Tobacco Use Types Packs/Day Years Used Date Smoking Tobacco: Never Smokeless Tobacco: Never Alcohol Use Standard Drinks/Week Comments Yes 0 (1 standard drink = 0.6 oz pur e alcohol) 1-2 per day PHQ-2 Answer Date Recorded PHQ-2 Score 1 05/30/2024 Sex and Gender Information Value Date Recorded Sex Assigned at Not on file 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 Gender Identity Not on file Sexual Orientation Not on file 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 Not on file Not on file Not on f ile documented as of this encounter Plan of Treatment Not on file documented as of this encounter Visit Diagnoses Not on filedocumented in this encounter Care Teams Spray Blender Relationship Specialty [place] [address] [place] [address] [address] [place] [id number] PCP - General Family Medicine 05/20/24 Maylin Springer DO [address] [place] [address] Physician Cardiovascular Disease 05/20/24 Maylin Springer DO [address] [place] [address] Assigned Heart and Vascular Provider 06/19/24 documented as of this encounter
--- OUTSIDE RECORDS SUMMARY | 2025-02-15 00:58 | XMS_ITS | Encounter Summary ---
Author Organization [facility] Address [address] [place] [address]. [place] [address] Care Team Providers Care Copy Technician Name Role Phone Indio Bar MD Primary Care Provider [phone] Maylin Springer DO Unavailable [phone] Joshua Peacock MD Primary Care Provider [phone] Maylin Springer DO Unavailable [phone] Encounter Details Date Type Department Care Team (Late st Contact Info) Description 10/29/[address] [address] [place] MD [facility] [address] [place] [address] Social History Tobacco Use Types Packs/Day Years Used Date Smoking Tobacco: Never Assessed Sex and Gender Information Value Date Recorded Sex Assigned at Not on file 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 Gender Identity Not on file Sexual Orientation Not on file documented as of this encounter Plan of Treatment Not on file documented as of this encounter Visit Diagnoses Not on filedocumented in this encounter Care Teams Copy Technician Relationship Specialty Start Date End Date Indio Bar MD [address] [place] [address] PCP - General 11/15/02 05/19/24 Joshua Peacock MD [address] [place] [address] PCP - General Family Medicine 05/20/24 Maylin Springer DO [address] [place] [address] Physician Cardiovascular Disease 05/20/24 Maylin Springer DO [address] [place] [address] Assigned Heart and Vascular Provider 06/19/24 documented as of this encounter
--- OUTSIDE RECORDS SUMMARY | 2025-02-15 00:58 | XMS_ITS | Clinical Summary ---
Author Organization [facility] Address [address] [place] [address] Care Team Providers Care Food And Beverage Outlets Manager Name Role Phone Unavailable Primary Care Provider Unavailabl e Source Comments Patient records contain information from all sites at [facility]. For routine questions regarding patient records, call [phone] during business hours, M-F 8:00 AM - 5:00 PM Central Time. Record requests for emergency care only can be directed to [phone] at any time.[facility] Active Problems Problem Noted Date Diagnosed Date Chronic Kidney Disease Stage 2 Glomerular Filtration Rate 60 To 89 08/13/2024 Solitary Kidney Acquired 08/13/2024 Cyst Renal 08/13/2024 Social History Tobacco Use Types Packs/Day Years Used Date Smoking Tobacco: Never Assessed Sex and Gender Information Value Date Recorded Sex Assigned at Not on file Legal Sex Male 10:47 AM UNIT REACTOR OPERATOR Gender Identity Not on file Sexual Orientation Not on file Plan of Treatment Health Maintenance Due Date Last Done Comments CT Colonography 1975 Cologuard 1975 Colonoscopy 1975 Colorectal Cancer Screening 1975 FIT 1975 HIV Screening 1975 Hepatitis C Screening 1975 Lipid (Cholesterol) Screening 1975 Hepatitis B Vaccines (1 of 3 - 19+ 3-dose series) 1994 COVID-19 Vaccine (2023- season) 2024 08/23/2023, 08/13/2022, 08/22/2021, Additional history exists Influenza Vaccine (#1) 2024 , 07/05/2022, 07/08/2021, Additional history exists DTaP,Tdap,and Td Vaccines (2 - Td or Tdap) 06/17/2024 06/17/2014 Depression Screening (Annual PHQ-2) 08/28/2024 Fasting Glucose for Diabetes Screening 08/09/2027 08/09/2024, 12/15/2023, 12/13/2023, Additional history exists IPV Vaccines Aged Out No longer eligi ble based on patient's age to complete this topic Pneumococcal vaccine (0-49 years) Aged Out No longer eligible based on patient's age to complete this topic Procedures Procedure Name Priority Date/Time Associated Diagnosis Comments COMPREHENSIVE METABOLIC PANEL, S/P Routine 08/09/2024 7:29 AM UNIT REACTOR OPERATOR from Last 3 Months or Most Recently Relevant to Health Maintenance Results * (ABNORMAL) Comprehensive Metabolic Panel (08/09/2024 7:29 AM UNIT REACTOR OPERATOR) EXT Sodium 138 135 - 149 mmol/L [facility] EXT Potassium 4.6 3.6 - 5.1 mmol/L [facility] EXT Chloride 101 96 - 114 mmol/L [facility] EXT CO2 30 20 - 32 mmol/L [facility] EXT Anion Gap 7 7 - 15 mEq/L [facility] EXT BUN (Blood Urea Nitrogen) 26(H) 5 - 24 mg/dL [facility] EXT Creatinine 1.5 0.5 - 1.5 mg/dL [facility] EXT Estimated GFR (eGFR) 57 ml/min [facility] EXT Calcium, Total 9.6 8.4 - 10.6 mg/dL [facility] EXT Glucose 95 60 - 115 mg/dL [facility] EXT Albumin 4.4 3.3 - 5.0 g/dL [facility] EXT AST 53(H) 12 - 35 U/L [facility] EXT ALT 96(H) 4 - 50 U/L [facility] 08/09/2024 7:29 AM UNIT REACTOR OPERATOR Narrative [facility] - 08/09/2024 2:26 PM UNIT REACTOR OPERATOR Source result document attached to Order Number [id number] ([id number]) dated 08/09/2024. External results verified in Extract by Poornima Lizarraga on 08/09/2024 at 02:20 PM. us Ordering Provider External M.DRyann LAB BLOOD ADD-ON Final Result [facility] [address] [place] [address], [facility] [phone] from Last 3 Months or Most Recently Relevant to Health Maintenance [place] [address]
--- OUTSIDE RECORDS SUMMARY | 2025-02-15 00:58 | XMS_ITS | Encounter Summary ---
Author Organization [facility] Address [address] [place] [address]. [place] [address] Care Team Providers Care Obstetrics Nurse Practitioner Name Role Phone Indio Bar MD Primary Care Provider [phone] Maylin Springer DO Unavailable [phone] Joshua Peacock MD Primary Care Provider [phone] Maylin Springer DO Unavailable [phone] Encounter Details Date Type Department Care Team (Late st Contact Info) Description 03/21/2024 External Order Results [facility] [address] [place] [address] Outside, Provider Social History Tobacco Use Types Packs/Day Years Used Date Smoking Tobacco: Never Alcohol Use Standard Drinks/Week Comments Yes 0 (1 standard drink = 0.6 oz pur e alcohol) one/night Sex and Gender Information Value Date Recorded Sex Assigned at Not on file Legal 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 us Provider Outside LAB - URINE ORDERABLES Edited R esult [facility] Performing Organization Address [facility] de Phone Number Hone and StropEZE PFT NON-INTERFACED (ONBASE SCANS) * Albumin Random [...] Provider Outside LAB - URINE ORDERABLES Edited [employer] Performing Organization Address [facility] de Phone Number CHELAEZE PFT [...] Provider Outside LAB - BLOOD ORDERABLES Edited [employer] Performing Organization Address [facility] de Phone Number CHELAEZE PFT NON-INTERFACED (ONBASE SCANS) * CBC with [...] Outside LAB - BLOOD ORDERABLES Edited R [employer] BREEZE PFT NON-INTERFACED (ONBASE SCANS) * Phosphorus (03/21/2024 8:09 AM CDT) Phosphorus (External) 3.6 2.5 - 4.5 mg/dL NON-INTERFACED (ONBASE SCANS) Blood BLOOD SPECIMEN / Unknown 03/21/2024 8:09 AM CDT Narrative [facility] PFT - 05/24/2024 1:38 PM CDT Verified by Charlotte Mack on 05/24/2024. Provider Outside LAB - BLOOD ORDERABLES Edited R [employer] BREEZE PFT NON-INTERFACED (ONBASE SCANS) documented in this encounter Visit Diagnoses Not on filedocumented in this encounter Care Teams Obstetrics Nurse Practitioner Relationship Specialty Start Date End Date Indio Bar MD [address] [place] [address] PCP - General 11/15/02 05/19/24 Joshua Peacock MD [address] [place] [address] PCP - General Family Medicine 05/20/24 Maylin Springer DO [address] [place] [address] Physician Cardiovascular Disease 05/20/24 Maylin Springer DO [address] [place] [address] Assigned Heart and Vascular Provider 06/19/24 documented as of this encounter
--- OUTSIDE RECORDS SUMMARY | 2025-02-15 00:58 | XMS_ITS | Clinical Summary ---
Author Organization [facility] Address [address] [place] [address] Care Team Providers Care Laundry Press Operator Name Role Phone Nathenlanie Maylin Mary Anne DO Unavailable [phone] Joshua Peacock MD Primary Care Provider [phone] Maylin Springer DO Unavailable [phone] Allergies Active Allergy Reactions Criticality Noted Date [...] Esophageal reflux 11/13/2002 Other acne 11/13/2002 Immunizations Immunization Administration Dates Next Due HEPA 11/13/2002 Family [...] on file Legal Sex Male 3:27 AM MANAGER INVENTORY Gender Identity Not on file Sexual Orientation Not on file 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 Not on file Not on file Not on f ile Last Filed Vital Signs Vital Sign Reading Time Taken Comments Blood Pressure 116/84 05/30/2024 4:14 PM CDT Pulse 66 05/30/2024 4:14 PM CDT Temperature - - Respiratory Rate 16 11/10/2003 8:15 AM MANAGER INVENTORY Oxygen Saturation - - Inhaled Oxygen Concentration - - Weight 78 kg (172 lb) 05/30/2024 4:14 PM CDT Height 180.3 cm (5' 11) 05/30/2024 4:14 PM CDT Body Mass Index 23.99 05/30/2024 4:14 PM CDT Plan of Treatment Health Maintenance Due Date Last Done Comments ADVANCE CARE PLANNING 1975 ANNUAL REVIEW OF HM ORDERS 1975 CT COLONOGRAPHY 1975 FIT 1975 FLEX SIG 1975 sDNA (Cologuard) 1975 COLONOSCOPY 1985 COLORECTAL CANCER SCREENING 1985 HIV SCREENING 1990 HEPATITIS C SCREENING 1993 HEPATITIS B VACCINE (1 of 3 - 19+ 3-dose series) 1994 LIPID 10/03/2008 10/03/2007, 01/27/2003 YEARLY PREVENTIVE VISIT 10/03/2008 10/03/2007, 11/13 DIABETES SCREENING 10/03/2010 10/03/2007, 01/27/2003 COVID-19 VACCINE ( season) 2024 08/23/2023, 08/13/2022, 08/22/2021, Additional history exists DTAP/TDAP/TD VACCINE (2 - Td or Tdap) 06/17/2024 06/17/2014 PHQ-2 (once per calendar year) 2024 05/30/2024 ZOSTER VACCINE (1 of 2) 2025 INFLUENZA VACCINE (Season Ended) 2025 08/12/2023, 07/05/2022, 07/05/2022, Additional history exists HPV VACCINE Aged Out No longer eligi ble based on patient's age to complete this topic MENINGITIS VACCINE Aged Out No longer eligible based on patient's age to complete this topic PNEUMOCOCCAL VACCINE: PEDIATRICS (0 to 5 YEARS) AND AT-RISK PATIENTS (6 to 49 YEARS) Aged Out No longer eligible based on patient's age to complete this topic Procedures Procedure Name Priority Date/Time Associated Diagnosis Comments HCL BASIC METABOLIC PANEL Routine 10/03/2007 9:14 AM MANAGER INVENTORY Routine Medical Exam CL AFF A.M.A. LIPID PANEL Routine 10/03/2007 9:14 AM MANAGER INVENTORY Routine Medical Exam from Last 3 Months or Most Recently Relevant to Health Maintenance Results * A.M.A. BASIC METABOLIC PANEL (10/03/2007 9:14 AM MANAGER INVENTORY) Sodium 138 133 - 144 mmol/L [facility] Potassium 3.9 3.4 - 5.3 mmol/L [facility] Chloride 101 94 - 109 mmol/L [facility] Carbon Dioxide 30 20 - 32 mmol/L [facility] Anion Gap 7 6 - 17 mmol/L [facility] Glucose 92 60 - 99 mg/dL [facility] Urea Nitrogen 11 5 - 24 mg/dL [facility] Creatinine 1.04 0.80 - 1.50 mg/dL [facility] GFR Estimate 88 >60 mL/min/1.7 m2 [facility] GFR Estimate If Black >90 >60 mL/min/1.7 m2 [facility] Calcium 9.8 8.5 - 10.4 mg/dL [facility] 10/03/2007 9:14 AM MANAGER INVENTORY 10/03/2007 9:15 AM MANAGER INVENTORY us Indio Bar MD LABORATORY Final Resul t [facility] [address] [place] [address] * (ABNORMAL) A.M.A. LIPID PANEL (10/03/2007 9:14 AM MANAGER INVENTORY) Cholesterol 157 0 - 200 mg/dL [facility] Comment: LDL Cholesterol is the primary guide to therapy: LDL-cholesterol goal in high risk patients is <100 mg/dL and in very high risk patients is <70 mg/dL. The NCEP recommends further evaluation of: patients with cholesterol <200 mg/dL if additional risk factors are present, cholesterol >240 mg/dL, triglycerides >150 mg/dL, or HDL <40 mg/dL. Triglycerides 131 0 - 150 mg/dL [facility] HDL Cholesterol 33(L) 40 - 110 mg/dL [facility] LDL Cholesterol Calculated 98 0 - 129 mg/dL [facility] VLDL-Cholesterol 26 0 - 30 mg/dL [facility] Cholesterol/HDL Ratio 4.7 0.0 - 5.0 [facility] 10/03/2007 9:14 AM MANAGER INVENTORY 10/03/2007 9:15 AM MANAGER INVENTORY us Indio Bar MD LABORATORY Final Resul t [facility] [address] [place] [address] from Last 3 Months or Most Recently Relevant to Health Maintenance Insurance [employer] Care Teams Laundry Press Operator Relationship Specialty Start Date End Date Joshua Peacock MD [address] [place] [address] PCP - General Family Medicine 05/20/24 Maylin Springer DO [address] [place] [address] Physician Cardiovascular Disease 05/20/24 Maylin Springer DO [address] [place] [address] Assigned Heart and Vascular Provider 06/19/24
--- OUTSIDE RECORDS SUMMARY | 2025-02-15 00:58 | XMS_ITS | Clinical Summary ---
Author Organization [facility] Address [address] [place] [address] Care Team Providers Care Senior Front End Web Developer Name Role Phone Clinic, No Pcp Or Primary Care Provider Unavaila ble Allergies No known active allergies Medications rosuvastatin (Crestor) 10 mg tablet Take 10 mg by mouth at bedtime. Active escitalopram oxalate (Lexapro) 10 mg tablet Take 10 mg by mouth once daily. Active famotidine (Pepcid) 20 mg tablet Take 20 mg by mouth at bedtime. Active oxyCODONE (ROXICODONE) 5 mg immediate release tabletIndication s:UPJ (ureteropelvic junction) obstruction Take 1-2 Tablets (5-10 mg) by mouth every 4 hours if needed for Pain (For severe pain.). 12 Tablet 12/13/2023 11:05 AM CDT 12/13/2023 Active docusate (COLACE) 100 mg capsuleIndicatio ns:UPJ (ureteropelvic junction) obstruction Take 1 Capsule (100 mg) by mouth 2 times daily if needed for Constipation . 30 Capsule 12/13/2023 11:05 AM CDT 12/13/2023 Active methocarbamoL (ROBAXIN) 500 mg tabletIndication s:H/O left radical nephrectomy Take 1 Tablet (500 mg) by mouth every 6 hours if needed for Muscle Spasm by mouth 1st choice. 16 Tablet 12/14/2023 12:12 PM CDT 12/14/2023 Active Active Problems Problem Noted Date Diagnosed Date Postoperative ileus 12/16/2023 CKD (chronic kidney disease) stage 2, GFR 60-89 ml/min 12/16/2023 Hyperglycemia 12/16/2023 H/O left nephrectomy 12/16/2023 Atrophic kidney 12/14/2023 UPJ obstruction, acquired 10/30/2023 UPJ (ureteropelvic junction) obstruction 024 Ureteropelvic junction (UPJ) obstruction 024 GERD without esophagitis 10/29/2023 Other hyperlipidemia 10/29/2023 Persistent depressive disorder 10/29/2023 Immunizations Immunization Administration Dates Next Due Hepatitis A (Adult) [...] is your housing situation today? 1 12/16/2023 Interpersonal Safety Answer Date Record ed Are you being hit, kicked, p ushed or yelled at (see row info)? No 12/15/2023 Interpersonal Safety Abuse 12 - 18 Not on file 12/15/2023 Interpersonal Safety Ambulatory Vulnerability No t on file 12/15/2023 Utilities Answer Date Recorded Do you have trouble paying f or utilities (for example, heat, electricity, water, phone)? 1 12/16/2023 Sex and Gender Information Value Date Recorded Sex Assigned at Not on file Legal Sex Male 7:45 PM APPLICATIONS DEVELOPER Gender Identity Not on file Sexual Orientation Not on file Obstetrics History Last Filed Vital Signs Vital Sign Reading Time Taken Comments Blood Pressure 116/70 12/18/2023 8:14 AM CDT Pulse 78 12/18/2023 8:14 AM CDT Temperature 36.6 C (97.9 F) 12/18/2023 8:14 AM CDT Respiratory Rate 16 12/18/2023 8:14 AM CDT [...] Hepatitis C screening for age 18-79 1993 Hepatitis B series for 19+ (1 of 3 - 19+ 3-dose series) 1994 Colonoscopy through age 75 02/23/2020 Lipids for age 45-75 02/23/2020 COVID-19 vaccine series ( season) 2024 08/23/2023, 08/13/2022, 08/22/2021, Additional history exists Tetanus booster 06/17/2024 06/17/2014 Influenza Vaccine (Season Ended) 2025 08/12/2023, 07/05/2022, 07/08/2021, Additional history exists Tdap Completed 06/17/2014 Pneumococcal series for age 6-49 Aged Out No longer eligible based on patient's age to complete this topic Medical Devices Implanted Type Area Fund Development Manager Device Identifier Shelf Expiration Date Model / Serial / Lot Stent Uret [id number] Contour - [id number] Implanted:Qty: 1 on 10/30/2023 by Zurdo Ascencio MD at [facility] Left: [place] [facility] [place] [facility] 12/01/2023 [id number] Description:See implant shee t Insurance [employer] Advance Directives * Full Code (Latest Code [...] Code Status Discussion: Reviewed Preferences Care Teams Senior Front End Web Developer Relationship Specialty Start Date End Date Clinic, No Pcp Or . PCP - General 11/02/23
== END 2025-02-14 09:06 | disposition home or self-care (01) ==
LOC: US 09:06
PROVIDERS: PCP Family Medicine; Visit Provider Internal Medicine Nephrology
DX: N28.1 Cyst of kidney, acquired (principal); Z90.5 Acquired absence of kidney
CPT/HCPCS: 76770

== ENCOUNTER 2025-07-30 07:57 | Outpatient (CLI) | payer OTHER, SELFPAY | END 2025-07-30 07:58 | disposition home or self-care (01) | LOC: NFLDREF 08-01 13:15 | PROVIDERS: PCP Family Medicine; Referring Provider Family Medicine; Visit Provider Internal Medicine Nephrology | DX: R79.89 Other specified abnormal findings of blood chemistry (principal); N18.9 Chronic kidney disease, unspecified; N28.1 Cyst of kidney, acquired; E78.00 Pure hypercholesterolemia, unspecified; Z12.5 Encounter for screening for malignant neoplasm of prostate | CPT/HCPCS: 80061; 80069; 80076; 82043; 82565; 82570; 82610; G0103 ==

== ENCOUNTER 2025-07-30 09:58 | Outpatient (CLI) | payer OTHER, SELFPAY ==
--- NOTE | 2025-07-30 10:15 | CRLHL7_ITS ---
For Patients: As a result of the Century Cures Act, medical imaging exams and procedure reports are released immediately into your electronic medical record. You may view this report before your referring provider. If you have questions, please contact your health care provider. CLINICAL HISTORY: Bosniak cyst follow up COMPARISON: 02/14/2025 TECHNIQUE: Iqbal scale and color Doppler images were acquired of the right kidney and urinary bladder. FINDINGS: Septated cyst right kidney is stable measuring 11 x 7 x 9 millimeters. Multi-septated cyst right kidney measures 5.4 x 3.5 x 4.3 cm, also unchanged. No associated color flow regarding the septations. No hydronephrosis. The right kidney measures 13.4cm in length. The renal cortex appears of normal thickness. Bladder measures 347 cc prevoid and 6 cc postvoid. IMPRESSION: Stable septated right renal cysts. Dictated by Devang Napier MD @ 07/30/2025 12:59:54 PM (Electronically Signed)
== END 2025-07-30 09:59 | disposition home or self-care (01) ==
LOC: US 09:59
PROVIDERS: PCP Family Medicine; Visit Provider Internal Medicine Nephrology
DX: N28.1 Cyst of kidney, acquired (principal); R79.89 Other specified abnormal findings of blood chemistry; N18.9 Chronic kidney disease, unspecified; E78.00 Pure hypercholesterolemia, unspecified; Z12.5 Encounter for screening for malignant neoplasm of prostate
CPT/HCPCS: 76770